=== PATIENT | female | born 1955 | race Caucasian/White ===

== ENCOUNTER 2016-08-13 15:22 | Emergency (ER) | payer OTHER ==
[~2016-08-13 15:22] MED LIST: ASPI1TAB PO; ASPI325T PO; FERR325T3 PO; LASI20TA PO; LOPR100T PO; METO100T PO; SENN8.6C PO; ZEST1TAB6 PO
[2016-08-13] MEDS ORDERED: ONDANSETRON 4MG/2ML VIAL (J2405) As Ordered ONE (16:31)
[2016-08-13] MEDS ORDERED: MORPHINE 4 MG/ML 1ML SYRINGE As Ordered ONE (16:31)
[2016-08-13] MEDS ORDERED: KETOROLAC 30 MG/ML VIAL (J1885) As Ordered ONE (16:31)
[2016-08-13 16:34] LABS: BASO % 0.2 % (0.0-1.0); EOS # 0.1 K/mm3 (0.0-0.50); EOS % 1.5 % (0.0-3.0); LARGE UNSTAINED CELL # 0.1 K/mm3 (0.0-0.4); LARGE UNSTAINED CELL % 1.7 % (0.0-4.0); LYMPH # 0.7 K/mm3 (1.5-4.5); LYMPH % 14.6 % (24.0-44.0); MEAN CORPUSCULAR HEMOGLOBIN 28.6 pg (27.0-33.0); MEAN CORPUSCULAR VOLUME 86.6 fl (80.0-96.0); MONO # 0.3 K/mm3 (0.0-0.8); MONO % 5.5 % (0.0-5.0); NEUTROPHILS # 3.7 K/mm3 (1.8-7.7); NEUTROPHILS % 76.5 % (36.0-66.0); PLATELET COUNT, AUTOMATED 176 k/mm3 (150-450); RED CELL DISTRIBUTION WIDTH 14.6 % (11.5-14.5); WHITE BLOOD COUNT 4.8 K/mm3 (4.0-10.0)
[2016-08-13 16:43] LABS: ALBUMIN 3.9 GM/DL (3.2-5.2); ALBUMIN/GLOBULIN RATIO 1.03 (1.00-1.93); ALKALINE PHOSPHATASE 89 U/L (45-117); ALT/SGPT 27 U/L (12-78); AMYLASE 44 U/L (25-115); ANION GAP 9 MEQ/L (8-16); AST/SGOT 18 U/L (15-37); BILIRUBIN,DIRECT 0.1 MG/DL (0.0-0.2); BILIRUBIN,TOTAL 0.5 MG/DL (0.2-1.0); BLOOD UREA NITROGEN 19 MG/DL (7-18); CALCIUM LEVEL 9.5 MG/DL (8.8-10.2); CARBON DIOXIDE LEVEL 30 MEQ/L (21-32); CHLORIDE LEVEL 102 MEQ/L (98-107); CREATININE FOR GFR 1.14 MG/DL (0.55-1.02); GLOMERULAR FILTRATION RATE 51.2 (>45); GLUCOSE, FASTING 104 MG/DL (80-110); POTASSIUM SERUM 3.9 MEQ/L (3.5-5.1); SODIUM LEVEL 141 MEQ/L (136-145); TOTAL PROTEIN 7.7 GM/DL (6.4-8.2)
[2016-08-13 17:11] LABS: INR 1.01
--- NOTE | 2016-08-13 17:11 | REP ---
Clinical: Upper abdominal pain. Comparison: 01/06/2015. Findings: Lung bases demonstrate mild chronic fibroatelectatic changes. Liver, spleen, pancreas, gallbladder, bilateral adrenal glands and kidneys are normal. The enteric system is without obstruction or acute inflammatory process. Normal terminal ileum and appendix identified in the right lower quadrant. Sigmoid diverticula noted without acute diverticulitis. Pelvis demonstrates normal bladder and enlarged presumed myomatous uterus. No pelvic fluid or ascites. No free air. No significant adenopathy. Abdominal aorta without aneurysm. Musculoskeletal structures without focal osseous abnormality. Impression: 1. Scattered sigmoid diverticula without acute diverticulitis. 2. Enlarged myomatous uterus similar to 01/06/2015. 3. No further acute intra-abdominal or pelvic pathology appreciated. Signed by Milan Jasso MD 08/13/2016 05:03 P
--- NOTE | 2016-08-13 18:26 | EDDOCDS ---
Physician Documentation [facility] Name: Clarissa Agrawal Age: 61 yrs Sex: Female : 1955 Arrival Date: 08/13/2016 Time: 15:22 Bed 15 Private MD: Walter Rich Disposition: 08/13/16 18:07 Discharged to Home/Self Care. Impression: Abdominal and pelvic pain. - Condition is Stable. - Discharge Instructions: Abdominal Pain, Adult. - Prescriptions for [place] 5- 325 mg Oral Tablet - take 1 tablet by ORAL route every 6 hours As needed MDD: 4 tabs; 20 tablet. Zofran 4 mg Oral Tablet - take 1 tablet by ORAL route 4 times per day As needed; 10 tablet. - Medication Reconciliation, Local Pharmacy Hours form. - Follow up: Walter Rich DO; When: 4 - 5 days; Reason: Recheck today's complaints, Continuance of care. - Problem is an acute exacerbation. - Symptoms have improved. Historical: - Allergies: no known allergies; - Home Meds: 1. metoprolol succinate 50 mg oral Tb24 1 tab once daily (Last dose: 08/13/2016 08:00) 2. lisinopril 5 mg Oral tab once daily (Last dose: 08/13/2016 08:00) 3. furosemide 20 mg Oral tab .5 tab once daily 10mg (Last dose: 08/13/2016 08:00) - PMHx: CHF; Hypertension; colon CA; - PSHx: Colon Resection; cyst removed left wrist; - Social history: Smoking status: Patient states was never smoker of tobacco. Patient/guardian denies using alcohol, street drugs, No barriers to communication noted, The patient speaks fluent Faroese, Speaks appropriately for age. - Family history: Not pertinent. - : The pt / caregiver states he / she is not on anticoagulants. Home medication list is obtained from the patient. - Exposure Risk Screening:: None identified. Vital Signs: 08/13 15:23 BP 203 / 91; Pulse 55; Resp 18; Temp 96.4(O); Pulse Ox 98% on R/A; Weight 89.81 kg / sar1 198 lbs (R); Height 5 ft. 2 in. (157.48 cm) (R); Pain 8/10; 15:57 BP 190 / 96 LA Sitting (man/reg); jjr 17:02 Pain 8/10; jjr 17:15 BP 162 / 74; Pulse 49; Resp 18; Pulse Ox 95% on R/A; Pain 7/10; jjr 18:23 BP 147 / 76; Pulse 51; Resp 20; Temp 96.7(O); Pulse Ox 97% on R/A; Pain 0/10; jc4 15:23 Body Mass Index 36.21 (89.81 kg, 157.48 cm) sar1 MDM: 15:36 ECG WITH READING ER PHYS+CARDIAG ordered. EDMS 16:18 Financial registration complete. zo 16:25 NS 0.9% 1000 ml IV at bolus once ordered. ke 16:25 Ondansetron 4 mg IVP once ordered. ke 16:25 ketorolac 30 mg IVP once ordered. ke 16:26 morphine 4 mg IVP every 30 minutes; Document pain score/vitals after each dose (Hold if ke SBP < 90mmHg) x2 ordered. 16:26 IV Saline Lock ordered. ke 16:26 Undress patient appropriately for examination ordered. ke 16:26 Amylase Ordered. EDMS 16:26 Basic Metabolic Profile Ordered. EDMS 16:26 CBC with Diff Ordered. EDMS 16:26 Cardiac Injury Profile Ordered. EDMS 16:26 Lipase Ordered. EDMS 16:26 Liver Profile Ordered. EDMS 16:26 Prothrombin Time Profile\E\INR Ordered. EDMS 16:26 Troponin Ordered. EDMS 16:26 Urinalysis Ordered. EDMS 16:26 Urine Culture Ordered. EDMS 16:27 NOTHING BY MOUTH+DIET ordered. EDMS 16:27 [facility] [place] Payment Agreement was scanned into [employer] and attached to record. zo 16:27 CT ABD & PELVIS: No Contrast Ordered. EDMS 17:58 Basic Metabolic Profile Reviewed. ke 17:58 CBC with Diff Reviewed. ke 17:58 Amylase Reviewed. ke 17:58 Cardiac Injury Profile Reviewed. ke 17:58 Lipase Reviewed. ke 17:58 Liver Profile Reviewed. ke 17:58 Prothrombin Time Profile\E\INR Reviewed. ke 17:58 Troponin Reviewed. ke 17:58 CT ABD & PELVIS: No Contrast Reviewed. ke Administered Medications: 16:41 Drug: NS 0.9% 1000 ml [sodium chloride 0.9 % intravenous solution] Route: IV; Rate: jjr bolus; Site: left antecubital; 16:41 Drug: Ondansetron 4 mg [ondansetron HCl 2 mg/mL intravenous solution (2 mL)] Route: jjr IVP; Site: left antecubital; 16:41 Drug: ketorolac 30 mg [ketorolac 30 mg/mL (1 mL) injection solution (1 mL)] Route: IVP; jjr Site: left antecubital; 16:41 Drug: morphine 4 mg [morphine 4 mg/mL intravenous cartridge (1 mL)] Route: IVP; Site: jjr left antecubital; 17:02 Follow up: Pain 03/22 Adult jjr Signatures: Dispatcher [employer] EDBandar Ray, Nayeli Alvarado Jennifer RN RN jc4 Sepideh Mathur RN RN ttb Madie Padilla RN jjr The chart was reviewed and I authenticate all verbal orders and agree with the evaluation and treatment provided.Attachments: 16:27 [facility] Payment Agreement zo MTDD
--- NOTE | 2016-08-13 18:26 | EDDOCDS ---
Nurse's Notes [facility] Name: Clarissa Agrawal Age: 61 yrs Sex: Female : 1955 Arrival Date: 08/13/2016 Time: 15:22 Bed 15 Private MD: Walter Rich Diagnosis: Abdominal and pelvic pain Presentation: 08/13 15:30 Presenting complaint: Patient states: epigastric pain started last night after dinner. ttb No improvement overnight. Denies n/v. Some SOB. Adult Sepsis Screening: The patient does not have new or worsening altered mentation. Patient's respiratory rate is less than 22. Systolic blood pressure is greater than 100. Patient has a qSOFA score of 0- Negative Sepsis Screen. Suicide/Homicide risk assessment- the patient denies having any suicidal and/or homicidal ideations and does not present with any other emotional, behavioral or mental health complaints. Status: Patient is not a financial services internship or dependent. Transition of care: patient was not received from another setting of care. 15:30 Acuity: DASIA Level 3 ttb 15:30 Method Of Arrival: Walkin/Carried/Asstd ttb Triage Assessment: 15:34 General: Appears uncomfortable, well nourished, well groomed, Behavior is anxious, ttb appropriate for age, cooperative, pleasant, restless. Pain: Location: epigastric. Pain: Pain currently is 10 out of 10 on a pain scale. HIV screening NA for this visit Offered previously. Neurological: Level of Consciousness is awake, alert. Cardiovascular: Chest pain is located in epigastric area. Respiratory: Airway is patent Respiratory effort is even, unlabored, Reports shortness of breath Denies cough. GI: Reports constipation. Derm: Skin is normal. Historical: - Allergies: no known allergies; - Home Meds: 1. metoprolol succinate 50 mg oral Tb24 1 tab once daily (Last dose: 08/13/2016 08:00) 2. lisinopril 5 mg Oral tab once daily (Last dose: 08/13/2016 08:00) 3. furosemide 20 mg Oral tab .5 tab once daily 10mg (Last dose: 08/13/2016 08:00) - PMHx: CHF; Hypertension; colon CA; - PSHx: Colon Resection; cyst removed left wrist; - Social history: Smoking status: Patient states was never smoker of tobacco. Patient/guardian denies using alcohol, street drugs, No barriers to communication noted, The patient speaks fluent French, Speaks appropriately for age. - Family history: Not pertinent. - : The pt / caregiver states he / she is not on anticoagulants. Home medication list is obtained from the patient. - Exposure Risk Screening:: None identified. Screenin:58 Screening information is obtained from the patient. Fall risk: No risks identified. jjr Assistance ADL's: requires no assistance with activities of daily living. Abuse/DV Screen: The patient / caregiver reports he/she is: not in a situation that causes fear, pain or injury. Nutritional screening: No deficits noted. Advance Directives: There is no active DNR order. home support is adequate. Assessment: 15:57 General: Appears uncomfortable, well nourished, well groomed, Behavior is appropriate jjr for age. Neurological: No deficits noted. Respiratory: No deficits noted. GI: Abdomen is non- distended Bowel sounds present X 4 quads. Abd is soft and non tender X 4 quads. Reports epigastric pain, one episode diarrhea yesterday and no bowel movement today. Derm: No deficits noted. 17:15 General: Appears in no apparent distress, epigastric pain decreased to 7/10. jjr 18:00 General: Appears in no apparent distress, ambulatory to BR gait steady, reports jjr continued relief from epigastric pain. 18:23 General: Appears in no apparent distress, Behavior is cooperative, pleasant. Pain: jc4 Denies pain. Neurological: Level of Consciousness is awake, alert, Oriented to person, place, time. Respiratory: Airway is patent Respiratory effort is even, unlabored, Respiratory pattern is regular, symmetrical. GI: Denies nausea. Derm: Skin is pink, warm & dry. Vital Signs: 15:23 BP 203 / 91; Pulse 55; Resp 18; Temp 96.4(O); Pulse Ox 98% on R/A; Weight 89.81 kg (R); sar1 Height 5 ft. 2 in. (157.48 cm) (R); Pain 8/10; 15:57 BP 190 / 96 LA Sitting (man/reg); jjr 17:02 Pain 8/10; jjr 17:15 BP 162 / 74; Pulse 49; Resp 18; Pulse Ox 95% on R/A; Pain 7/10; jjr 18:23 BP 147 / 76; Pulse 51; Resp 20; Temp 96.7(O); Pulse Ox 97% on R/A; Pain 0/10; jc4 15:23 Body Mass Index 36.21 (89.81 kg, 157.48 cm) sar1 Vitals: 15:23 Log In Time: August 13, 2016 at 15:23. sar1 ED Course: 15:23 Patient visited by Fabiola Hart, Director Multimedia. sar1 15:23 Walter Rich DO is Private Physician. sar1 15:23 Patient moved to Waiting sar1 15:25 Patient moved to Pre RCE sar1 15:31 Triage Initiated ttb 15:40 Patient moved to PD2 / 27 ms18 15:48 Patient moved to 15 ms2 15:58 Patient visited by Madie Padilla, RN. jjr 15:58 The patient / caregiver is instructed regarding the plan of care and ED course. jjr 15:59 EKG done. (by ED staff). Reviewed by Walter Rich DO. ttb 16:01 Bandar Oliver FNP is PHCP. ke 16:01 Patient visited by Bandar Oliver FNP. ke 16:01 Patient visited by Bandar Oliver FNP. ke 16:09 Inserted saline lock: 20 gauge in left antecubital area and blood collected. Labs jjr drawn. (by ED staff). Sent per order to lab. 16:20 Patient visited by Valery Pastor PCA. jlf 16:27 [facility] Payment Agreement was scanned into [employer] and attached to record. zo 16:51 Patient visited by Bandar Oliver FNP. ke 17:15 Patient visited by Madie Padilla, DIANA. jjr 17:31 CT ABD & PELVIS: No Contrast Returned. EDMS 17:47 Patient visited by Bandar Oliver FNP. ke 18:00 Urinalysis Sent. jjr 18:00 Urine Culture Sent. jjr 18:01 Patient visited by Madie Padilla, RN. jjr 18:07 Walter Rich DO is Referral Physician. ke 18:24 Discontinued lock intact, bleeding controlled, pressure dressing applied, No jc4 redness/swelling at site. No procedures done that require assistance. Administered Medications: 16:41 Drug: NS 0.9% 1000 ml [sodium chloride 0.9 % intravenous solution] Route: IV; Rate: jjr bolus; Site: left antecubital; 16:41 Drug: Ondansetron 4 mg [ondansetron HCl 2 mg/mL intravenous solution (2 mL)] Route: jjr IVP; Site: left antecubital; 16:41 Drug: ketorolac 30 mg [ketorolac 30 mg/mL (1 mL) injection solution (1 mL)] Route: IVP; jjr Site: left antecubital; 16:41 Drug: morphine 4 mg [morphine 4 mg/mL intravenous cartridge (1 mL)] Route: IVP; Site: jjr left antecubital; 17:02 Follow up: Pain 03/22 Adult jjr Order Results: Lab Order: Amylase; SPEC'M 08/13/16 16:08 Test: AMYLASE; Value: 44; Range: 25-115; Units: U/L; Status: F Lab Order: Basic Metabolic Profile; SPEC'M 08/13/16 16:08 Test: GLUCOSE, FASTING; Value: 104; Range: 80-110; Units: MG/DL; Status: F Test: BLOOD UREA NITROGEN; Value: 19; Range: 7-18; Abnormal: Above high normal; Units: MG/DL; Status: F Test: CREATININE FOR GFR; Value: 1.14; Range: 0.55-1.02; Abnormal: Above high normal; Units: MG/DL; Status: F Test: GLOMERULAR FILTRATION RATE; Value: 51.2; Range: >45; Status: F Test: SODIUM LEVEL; Value: 141; Range: 136-145; Units: MEQ/L; Status: F Test: POTASSIUM SERUM; Value: 3.9; Range: 3.5-5.1; Units: MEQ/L; Status: F Test: CHLORIDE LEVEL; Value: 102; Range: 98-107; Units: MEQ/L; Status: F Test: CARBON DIOXIDE LEVEL; Value: 30; Range: 21-32; Units: MEQ/L; Status: F Test: ANION GAP; Value: 9; Range: 8-16; Units: MEQ/L; Status: F Test: CALCIUM LEVEL; Value: 9.5; Range: 8.8-10.2; Units: MG/DL; Status: F Test Note: ; Units are mL/min/1.73 m2 Chronic Kidney Disease Staging per NKF: Stage I & II GFR >=60 Normal to Mildly Decreased Stage III GFR 30-59 Moderately Decreased Stage IV GFR 15-29 Severely Decreased Stage V GFR <15 Very Little GFR Left ESRD GFR <15 on [employer]OR Lab Order: CBC with Diff; SPEC'M 08/13/16 16:08 Test: WHITE BLOOD COUNT; Value: 4.8; Range: 4.0-10.0; Units: K/mm3; Status: F Test: RED BLOOD COUNT; Value: 5.04; Range: 4.00-5.40; Units: M/mm3; Status: F Test: HEMOGLOBIN; Value: 14.4; Range: 12.0-16.0; Units: g/dl; Status: F Test: HEMATOCRIT; Value: 43.7; Range: 36.0-47.0; Units: %; Status: F Test: MEAN CORPUSCULAR VOLUME; Value: 86.6; Range: 80.0-96.0; Units: fl; Status: F Test: MEAN CORPUSCULAR HEMOGLOBIN; Value: 28.6; Range: 27.0-33.0; Units: pg; Status: F Test: MEAN CORPUSCULAR HGB CONC; Value: 33.0; Range: 32.0-36.5; Units: g/dl; Status: F Test: RED CELL DISTRIBUTION WIDTH; Value: 14.6; Range: 11.5-14.5; Abnormal: Above high normal; Units: %; Status: F Test: PLATELET COUNT, AUTOMATED; Value: 176; Range: 150-450; Units: k/mm3; Status: F Test: NEUTROPHILS %; Value: 76.5; Range: 36.0-66.0; Abnormal: Above high normal; Units: %; Status: F Test: LYMPH %; Value: 14.6; Range: 24.0-44.0; Abnormal: Below low normal; Units: %; Status: F Test: MONO %; Value: 5.5; Range: 0.0-5.0; Abnormal: Above high normal; Units: %; Status: F Test: EOS %; Value: 1.5; Range: 0.0-3.0; Units: %; Status: F Test: BASO %; Value: 0.2; Range: 0.0-1.0; Units: %; Status: F Test: LARGE UNSTAINED CELL %; Value: 1.7; Range: 0.0-4.0; Units: %; Status: F Test: NEUTROPHILS #; Value: 3.7; Range: 1.8-7.7; Units: K/mm3; Status: F Test: LYMPH #; Value: 0.7; Range: 1.5-4.5; Abnormal: Below low normal; Units: K/mm3; Status: F Test: MONO #; Value: 0.3; Range: 0.0-0.8; Units: K/mm3; Status: F Test: EOS #; Value: 0.1; Range: 0.0-0.50; Units: K/mm3; Status: F Test: BASO #; Value: 0.0; Range: 0.0-0.2; Units: K/mm3; Status: F Test: LARGE UNSTAINED CELL #; Value: 0.1; Range: 0.0-0.4; Units: K/mm3; Status: F Lab Order: Cardiac Injury Profile; [facility]' 08/13/16 16:08 Test: CPK CREATINE PHOSPHOKINASE; Value: 62; Range: 26-192; Units: U/L; Status: F Test: CK-MB VALUE MASS; Value: 1.0; Range: 0.0-3.6; Units: NG/ML; Status: F Test: MB/CK RELATIVE INDEX; Value: 1.61; Range: < OR =4; Status: F Test Note: ; DIAGNOSIS CRITERIA MMB ng/ml Relative Index (RI) NON-AMI < or = 5 N/A [place] > 5 < or = 4 AMI > 5 > 4 Lab Order: Lipase; [facility]' 08/13/16 16:08 Test: LIPASE; Value: 123; Range: 73-393; Units: U/L; Status: F Lab Order: Liver Profile; [facility]' 08/13/16 16:08 Test: AST/SGOT; Value: 18; Range: 15-37; Units: U/L; Status: F Test: ALT/SGPT; Value: 27; Range: 12-78; Units: U/L; Status: F Test: ALKALINE PHOSPHATASE; Value: 89; Range: 45-117; Units: U/L; Status: F Test: BILIRUBIN,TOTAL; Value: 0.5; Range: 0.2-1.0; Units: MG/DL; Status: F Test: BILIRUBIN,DIRECT; Value: 0.1; Range: 0.0-0.2; Units: MG/DL; Status: F Test: TOTAL PROTEIN; Value: 7.7; Range: 6.4-8.2; Units: GM/DL; Status: F Test: ALBUMIN; Value: 3.9; Range: 3.2-5.2; Units: GM/DL; Status: F Test: ALBUMIN/GLOBULIN RATIO; Value: 1.03; Range: 1.00-1.93; Status: F Lab Order: Prothrombin Time Profile\E\INR; SPEC'M 08/13/16 16:42 Test: PROTHROMBIN TIME; Value: 13.4; Range: 12.3-14.5; Units: SECONDS; Status: F Test: INR; Value: 1.01; Status: F Test Note: ; THERAPUTIC HUMAN INR VALUES INDICATIONS NORMAL RANGES PROPHYLAXIS/TREATMENT OF: VENOUS THROMBOSIS 2.0-3.0 PULMONARY EMBOLISM 2.0-3.0 PREVENTION OF SYSTEMIC EMBOLISM FROM: TISSUE HEART VALVES 2.0-3.0 ACUTE MYOCARDIAL INFARCTION 2.0-3.0 VALVULAR HEART DISEASE 2.0-3.0 ATRIAL FIBRILLATION 2.0-3.0 MECHANICAL VALVES(HIGH RISK) 2.5-3.5 RECURRENT MYOCARDIAL INFARCTION 2.5-3.5 Lab Order: Troponin; SPEC'M 08/13/16 16:08 Test: TROPONIN I; Value: < 0.02; Range: < 0.10; Units: NG/ML; Status: F Test Note: ; Troponin I Reference Interval for Fiiiling LOCI: 99th Percentile= 0.00-0.045 ng/ml Risk Stratification: <= 0.10 ng/ml Decreased Risk for Adverse Clinical Events. 0.10-1.50 ng/ml Increased Risk for Adverse Clinical Events. Evaluation of additional criterion and/or repeat testing in 2-6 hours is suggested to rule out myocardial damage. >= 1.50 ng/ml Indicative of Myocardial Injury. Lab Order: Urinalysis; SPEC'M 08/13/16 17:58 Test: APPEARANCE, URINE; Value: CLEAR; Range: CLEAR; Status: F Test: COLOR, URINE; Value: STRAW; Range: YELLOW; Status: F Test: PH,URINE; Value: 6.0; Range: 5.0-9.0; Units: UNITS; Status: F Test: SPECIFIC GRAVITY URINE AUTO; Value: 1.009; Range: 1.002-1.035; Status: F Test: PROTEIN, URINE AUTO; Value: NEGATIVE; Range: NEGATIVE; Units: mg/dL; Status: F Test: GLUCOSE, URINE (UA) AUTO; Value: NEGATIVE; Range: NEGATIVE; Units: mg/dL; Status: F Test: KETONE, URINE AUTO; Value: NEGATIVE; Range: NEGATIVE; Units: mg/dL; Status: F Test: UROBILINOGEN, URINE AUTO; Value: 0.2; Range: 0.0-2.0; Units: mg/dL; Status: F Test: BILIRUBIN, URINE AUTO; Value: NEGATIVE; Range: NEGATIVE; Status: F Test: NITRITE, URINE AUTO; Value: NEGATIVE; Range: NEGATIVE; Status: F Test: LEUKOCYTE ESTERASE, URINE AUTO; Value: NEGATIVE; Range: NEGATIVE; Status: F Test: BLOOD, URINE BLOOD; Value: NEGATIVE; Range: NEGATIVE; Status: F Test: WBC, URINE AUTO; Value: 1; Range: 0-3; Units: /HPF; Status: F Test: RBC, URINE AUTO; Value: 1; Range: 0-3; Units: /HPF; Status: F Test: BACTERIA, URINE AUTO; Value: 1+; Range: NEGATIVE; Abnormal: Above high normal; Status: F Test: SQUAMOUS EPITHELIAL CELL UR AU; Value: 0; Range: 0-6; Units: /HPF; Status: F Test: HYALINE CAST, URINE AUTO; Value: 0; Range: 0-1; Units: /LPF; Status: F Radiology Order: CT ABD & PELVIS: No Contrast Test: CT ABD & PELVIS: No Contrast REASON FOR EXAMINATION: Abdomen Pain; Clinical: Upper abdominal pain.; ; Comparison: 01/06/2015.; ; Findings:; Lung bases demonstrate mild chronic fibroatelectatic changes.; ; Liver, spleen, pancreas, gallbladder, bilateral adrenal glands and kidneys are; normal. The enteric system is without obstruction or acute inflammatory process.; Normal terminal ileum and appendix identified in the right lower quadrant.; Sigmoid diverticula noted without acute diverticulitis. Pelvis demonstrates; normal bladder and enlarged presumed myomatous uterus. No pelvic fluid or; ascites. No free air. No significant adenopathy. Abdominal aorta without; aneurysm. Musculoskeletal structures without focal osseous abnormality.; ; Impression:; 1. Scattered sigmoid diverticula without acute diverticulitis.; 2. Enlarged myomatous uterus similar to 01/06/2015.; 3. No further acute intra-abdominal or pelvic pathology appreciated.; ; ; Signed by; Milan Jasso MD 08/13/2016 05:03 P; Outcome: 18:07 Discharge ordered by Provider. ke 18:24 Discharge Assessment: Patient awake, alert and oriented x 3. No cognitive and/or jc4 functional deficits noted. Patient verbalized understanding of disposition instructions. patient administered narcotics - no. The following High Risk Discharge criteria are identified: None. Discharged to home ambulatory. Condition: stable. Discharge instructions given to patient, Instructed on discharge instructions, follow up and referral plans. medication usage, no driving heavy equipment, no drinking with medication, Demonstrated understanding of instructions, medications, Pt was receptive of discharge instructions/ teaching. Property :Personal belongings accompany Pt. 18:25 CT Study completed. jc4 18:25 Patient left the ED. jc4 Signatures: Dispatcher [employer] EDMS Brijesh Jung RN RN ms2 Bandar Oliver, PROGRAMMER ANALYST PROGRAMMER ANALYST Nayeli Echavarria Jessica, RN RN jjr Castle, Jennifer, RN RN jc4 Sepideh Mathur RN RN ttb Forney, Jordain, LOGGING EQUIPMENT OPERATOR LOGGING EQUIPMENT OPERATOR Valentine Mccracken,DIANA RN ms18 Fabiola Hart, Director Multimedia Unit sar1 [facility]
--- NOTE | 2016-08-14 10:04 | ECGEPIP ---
Stationary ECG Study [facility] - ED Test Date: 2016-08-13 Pat Name: DARYA GOMEZ Department: Room: - Gender: F Founder And President: selin : 1955 Requested By: Patricio Miguel PA-C Order Number: [id number] Reading MD: Sarah Snyder Measurements Intervals [place] Rate: 53 P: 48 GA: 169 QRS: 18 QRSD: 104 T: 57 QT: 449 QTc: 425 Interpretive Statements SINUS BRADYCARDIA DELAYED R PROGRESSION NSTTW ABNORMALITY DECREASED RATE 07/15/14 Electronically Signed On 08-14-2016 10:03:39 EST by Sarah Snyder
--- NOTE | 2016-08-15 19:26 | EDDOCDS ---
Physician Documentation [facility] Name: Clarissa Agrawal Age: 61 yrs Sex: Female : 1955 Arrival Date: 08/13/2016 Time: 15:22 Bed 15 Private MD: Walter Rich Disposition: 08/13/16 18:07 Discharged to Home/Self Care. Impression: Abdominal and pelvic pain. - Condition is Stable. - Discharge Instructions: Abdominal Pain, Adult. - Prescriptions for Forman 5- 325 mg Oral Tablet - take 1 tablet by ORAL route every 6 hours As needed MDD: 4 tabs; 20 tablet. Zofran 4 mg Oral Tablet - take 1 tablet by ORAL route 4 times per day As needed; 10 tablet. - Medication Reconciliation, Local Pharmacy Hours form. - Follow up: Walter Rich DO; When: 4 - 5 days; Reason: Recheck today's complaints, Continuance of care. - Problem is an acute exacerbation. - Symptoms have improved. Historical: - Allergies: no known allergies; - Home Meds: 1. metoprolol succinate 50 mg oral Tb24 1 tab once daily (Last dose: 08/13/2016 08:00) 2. lisinopril 5 mg Oral tab once daily (Last dose: 08/13/2016 08:00) 3. furosemide 20 mg Oral tab .5 tab once daily 10mg (Last dose: 08/13/2016 08:00) - PMHx: CHF; Hypertension; colon CA; - PSHx: Colon Resection; cyst removed left wrist; - Social history: Smoking status: Patient states was never smoker of tobacco. Patient/guardian denies using alcohol, street drugs, No barriers to communication noted, The patient speaks fluent Syriac, Speaks appropriately for age. - Family history: Not pertinent. - : The pt / caregiver states he / she is not on anticoagulants. Home medication list is obtained from the patient. - Exposure Risk Screening:: None identified. Vital Signs: 08/13 15:23 BP 203 / 91; Pulse 55; Resp 18; Temp 96.4(O); Pulse Ox 98% on R/A; Weight 89.81 kg / sar1 198 lbs (R); Height 5 ft. 2 in. (157.48 cm) (R); Pain 8/10; 15:57 BP 190 / 96 LA Sitting (man/reg); jjr 17:02 Pain 8/10; jjr 17:15 BP 162 / 74; Pulse 49; Resp 18; Pulse Ox 95% on R/A; Pain 7/10; jjr 18:23 BP 147 / 76; Pulse 51; Resp 20; Temp 96.7(O); Pulse Ox 97% on R/A; Pain 0/10; jc4 15:23 Body Mass Index 36.21 (89.81 kg, 157.48 cm) sar1 MDM: 15:36 ECG WITH READING ER PHYS+CARDIAG ordered. EDMS 16:18 Financial registration complete. zo 16:25 NS 0.9% 1000 ml IV at bolus once ordered. ke 16:25 Ondansetron 4 mg IVP once ordered. ke 16:25 ketorolac 30 mg IVP once ordered. ke 16:26 morphine 4 mg IVP every 30 minutes; Document pain score/vitals after each dose (Hold if ke SBP < 90mmHg) x2 ordered. 16:26 IV Saline Lock ordered. ke 16:26 Undress patient appropriately for examination ordered. ke 16:26 Amylase Ordered. EDMS 16:26 Basic Metabolic Profile Ordered. EDMS 16:26 CBC with Diff Ordered. EDMS 16:26 Cardiac Injury Profile Ordered. EDMS 16:26 Lipase Ordered. EDMS 16:26 Liver Profile Ordered. EDMS 16:26 Prothrombin Time Profile\E\INR Ordered. EDMS 16:26 Troponin Ordered. EDMS 16:26 Urinalysis Ordered. EDMS 16:26 Urine Culture Ordered. EDMS 16:27 NOTHING BY MOUTH+DIET ordered. EDMS 16:27 [facility] [place] Payment Agreement was scanned into [employer] and attached to record. zo 16:27 CT ABD & PELVIS: No Contrast Ordered. EDMS 17:58 Basic Metabolic Profile Reviewed. ke 17:58 CBC with Diff Reviewed. ke 17:58 Amylase Reviewed. ke 17:58 Cardiac Injury Profile Reviewed. ke 17:58 Lipase Reviewed. ke 17:58 Liver Profile Reviewed. ke 17:58 Prothrombin Time Profile\E\INR Reviewed. ke 17:58 Troponin Reviewed. ke 17:58 CT ABD & PELVIS: No Contrast Reviewed. ke 08/14 06:33 T-Sheet-- Draft Copy was scanned into [employer] and attached to record. hs2 11:31 ECG/EKG was scanned into [employer] and attached to record. gb Administered Medications: 08/13 16:41 Drug: NS 0.9% 1000 ml [sodium chloride 0.9 % intravenous solution] Route: IV; Rate: jjr bolus; Site: left antecubital; 16:41 Drug: Ondansetron 4 mg [ondansetron HCl 2 mg/mL intravenous solution (2 mL)] Route: jjr IVP; Site: left antecubital; 16:41 Drug: ketorolac 30 mg [ketorolac 30 mg/mL (1 mL) injection solution (1 mL)] Route: IVP; jjr Site: left antecubital; 16:41 Drug: morphine 4 mg [morphine 4 mg/mL intravenous cartridge (1 mL)] Route: IVP; Site: jjr left antecubital; 17:02 Follow up: Pain 03/22 Adult jjr Signatures: Dispatcher [employer] EDMS Valorie Hernandez, Reg Reg gb Bandar Oliver, REVIEW MANAGER REVIEW MANAGER Nayeli Echavarria Jennifer, RN RN jc4 Sepideh Mathur RN RN ttb Michelle Arcos, Reg Reg hs2 Madie Padilla RN jjr The chart was reviewed and I authenticate all verbal orders and agree with the evaluation and treatment provided.Attachments: 16:27 [facility] Payment Agreement zo 08/14 06:33 T-Sheet-- Draft Copy hs2 11:31 ECG/EKG Chart Complete MTDD
--- NOTE | 2016-08-15 19:26 | EDDOCDS ---
Physician Documentation [facility] Name: Clarissa Agrawal Age: 61 yrs Sex: Female : 1955 Arrival Date: 08/13/2016 Time: 15:22 Bed 15 Private MD: Walter Rich Disposition: 08/13/16 18:07 Discharged to Home/Self Care. Impression: Abdominal and pelvic pain. - Condition is Stable. - Discharge Instructions: Abdominal Pain, Adult. - Prescriptions for Paton 5- 325 mg Oral Tablet - take 1 tablet by ORAL route every 6 hours As needed MDD: 4 tabs; 20 tablet. Zofran 4 mg Oral Tablet - take 1 tablet by ORAL route 4 times per day As needed; 10 tablet. - Medication Reconciliation, Local Pharmacy Hours form. - Follow up: Walter Rich DO; When: 4 - 5 days; Reason: Recheck today's complaints, Continuance of care. - Problem is an acute exacerbation. - Symptoms have improved. Historical: - Allergies: no known allergies; - Home Meds: 1. metoprolol succinate 50 mg oral Tb24 1 tab once daily (Last dose: 08/13/2016 08:00) 2. lisinopril 5 mg Oral tab once daily (Last dose: 08/13/2016 08:00) 3. furosemide 20 mg Oral tab .5 tab once daily 10mg (Last dose: 08/13/2016 08:00) - PMHx: CHF; Hypertension; colon CA; - PSHx: Colon Resection; cyst removed left wrist; - Social history: Smoking status: Patient states was never smoker of tobacco. Patient/guardian denies using alcohol, street drugs, No barriers to communication noted, The patient speaks fluent Malay, Speaks appropriately for age. - Family history: Not pertinent. - : The pt / caregiver states he / she is not on anticoagulants. Home medication list is obtained from the patient. - Exposure Risk Screening:: None identified. Vital Signs: 08/13 15:23 BP 203 / 91; Pulse 55; Resp 18; Temp 96.4(O); Pulse Ox 98% on R/A; Weight 89.81 kg / sar1 198 lbs (R); Height 5 ft. 2 in. (157.48 cm) (R); Pain 8/10; 15:57 BP 190 / 96 LA Sitting (man/reg); jjr 17:02 Pain 8/10; jjr 17:15 BP 162 / 74; Pulse 49; Resp 18; Pulse Ox 95% on R/A; Pain 7/10; jjr 18:23 BP 147 / 76; Pulse 51; Resp 20; Temp 96.7(O); Pulse Ox 97% on R/A; Pain 0/10; jc4 15:23 Body Mass Index 36.21 (89.81 kg, 157.48 cm) sar1 MDM: 15:36 ECG WITH READING ER PHYS+CARDIAG ordered. EDMS 16:18 Financial registration complete. zo 16:25 NS 0.9% 1000 ml IV at bolus once ordered. ke 16:25 Ondansetron 4 mg IVP once ordered. ke 16:25 ketorolac 30 mg IVP once ordered. ke 16:26 morphine 4 mg IVP every 30 minutes; Document pain score/vitals after each dose (Hold if ke SBP < 90mmHg) x2 ordered. 16:26 IV Saline Lock ordered. ke 16:26 Undress patient appropriately for examination ordered. ke 16:26 Amylase Ordered. EDMS 16:26 Basic Metabolic Profile Ordered. EDMS 16:26 CBC with Diff Ordered. EDMS 16:26 Cardiac Injury Profile Ordered. EDMS 16:26 Lipase Ordered. EDMS 16:26 Liver Profile Ordered. EDMS 16:26 Prothrombin Time Profile\E\INR Ordered. EDMS 16:26 Troponin Ordered. EDMS 16:26 Urinalysis Ordered. EDMS 16:26 Urine Culture Ordered. EDMS 16:27 NOTHING BY MOUTH+DIET ordered. EDMS 16:27 [facility] [place] Payment Agreement was scanned into [employer] and attached to record. zo 16:27 CT ABD & PELVIS: No Contrast Ordered. EDMS 17:58 Basic Metabolic Profile Reviewed. ke 17:58 CBC with Diff Reviewed. ke 17:58 Amylase Reviewed. ke 17:58 Cardiac Injury Profile Reviewed. ke 17:58 Lipase Reviewed. ke 17:58 Liver Profile Reviewed. ke 17:58 Prothrombin Time Profile\E\INR Reviewed. ke 17:58 Troponin Reviewed. ke 17:58 CT ABD & PELVIS: No Contrast Reviewed. ke 08/14 06:33 T-Sheet-- Draft Copy was scanned into [employer] and attached to record. hs2 11:31 ECG/EKG was scanned into [employer] and attached to record. gb Administered Medications: 08/13 16:41 Drug: NS 0.9% 1000 ml [sodium chloride 0.9 % intravenous solution] Route: IV; Rate: jjr bolus; Site: left antecubital; 16:41 Drug: Ondansetron 4 mg [ondansetron HCl 2 mg/mL intravenous solution (2 mL)] Route: jjr IVP; Site: left antecubital; 16:41 Drug: ketorolac 30 mg [ketorolac 30 mg/mL (1 mL) injection solution (1 mL)] Route: IVP; jjr Site: left antecubital; 16:41 Drug: morphine 4 mg [morphine 4 mg/mL intravenous cartridge (1 mL)] Route: IVP; Site: jjr left antecubital; 17:02 Follow up: Pain 03/22 Adult jjr Signatures: Dispatcher [employer] EDMS Valorie Hernandez, Reg Reg gb Bandar Oliver, ELECTROLYSIS NEEDLE OPERATOR ELECTROLYSIS NEEDLE OPERATOR Nayeli Echavarria Jennifer, RN RN jc4 Sepideh Mathur RN RN ttb Michelle Arcos, Reg Reg hs2 Madie Padilla RN jjr The chart was reviewed and I authenticate all verbal orders and agree with the evaluation and treatment provided.Attachments: 16:27 [facility] Payment Agreement zo 08/14 06:33 T-Sheet-- Draft Copy hs2 11:31 ECG/EKG Chart Complete MTDD
--- NOTE | 2016-08-15 19:26 | EDDOCDS ---
Nurse's Notes [facility] Name: Darya Gomez Age: 61 yrs Sex: Female : 1955 Arrival Date: 08/13/2016 Time: 15:22 Bed 15 Private MD: Walter Rich Diagnosis: Abdominal and pelvic pain Presentation: 08/13 15:30 Presenting complaint: Patient states: epigastric pain started last night after dinner. ttb No improvement overnight. Denies n/v. Some SOB. Adult Sepsis Screening: The patient does not have new or worsening altered mentation. Patient's respiratory rate is less than 22. Systolic blood pressure is greater than 100. Patient has a qSOFA score of 0- Negative Sepsis Screen. Suicide/Homicide risk assessment- the patient denies having any suicidal and/or homicidal ideations and does not present with any other emotional, behavioral or mental health complaints. Status: Patient is not a field services manager or dependent. Transition of care: patient was not received from another setting of care. 15:30 Acuity: DASIA Level 3 ttb 15:30 Method Of Arrival: Walkin/Carried/Asstd ttb Triage Assessment: 15:34 General: Appears uncomfortable, well nourished, well groomed, Behavior is anxious, ttb appropriate for age, cooperative, pleasant, restless. Pain: Location: epigastric. Pain: Pain currently is 10 out of 10 on a pain scale. HIV screening NA for this visit Offered previously. Neurological: Level of Consciousness is awake, alert. Cardiovascular: Chest pain is located in epigastric area. Respiratory: Airway is patent Respiratory effort is even, unlabored, Reports shortness of breath Denies cough. GI: Reports constipation. Derm: Skin is normal. Historical: - Allergies: no known allergies; - Home Meds: 1. metoprolol succinate 50 mg oral Tb24 1 tab once daily (Last dose: 08/13/2016 08:00) 2. lisinopril 5 mg Oral tab once daily (Last dose: 08/13/2016 08:00) 3. furosemide 20 mg Oral tab .5 tab once daily 10mg (Last dose: 08/13/2016 08:00) - PMHx: CHF; Hypertension; colon CA; - PSHx: Colon Resection; cyst removed left wrist; - Social history: Smoking status: Patient states was never smoker of tobacco. Patient/guardian denies using alcohol, street drugs, No barriers to communication noted, The patient speaks fluent Hebrew, Speaks appropriately for age. - Family history: Not pertinent. - : The pt / caregiver states he / she is not on anticoagulants. Home medication list is obtained from the patient. - Exposure Risk Screening:: None identified. Screenin:58 Screening information is obtained from the patient. Fall risk: No risks identified. jjr Assistance ADL's: requires no assistance with activities of daily living. Abuse/DV Screen: The patient / caregiver reports he/she is: not in a situation that causes fear, pain or injury. Nutritional screening: No deficits noted. Advance Directives: There is no active DNR order. home support is adequate. Assessment: 15:57 General: Appears uncomfortable, well nourished, well groomed, Behavior is appropriate jjr for age. Neurological: No deficits noted. Respiratory: No deficits noted. GI: Abdomen is non- distended Bowel sounds present X 4 quads. Abd is soft and non tender X 4 quads. Reports epigastric pain, one episode diarrhea yesterday and no bowel movement today. Derm: No deficits noted. 17:15 General: Appears in no apparent distress, epigastric pain decreased to 7/10. jjr 18:00 General: Appears in no apparent distress, ambulatory to BR gait steady, reports jjr continued relief from epigastric pain. 18:23 General: Appears in no apparent distress, Behavior is cooperative, pleasant. Pain: jc4 Denies pain. Neurological: Level of Consciousness is awake, alert, Oriented to person, place, time. Respiratory: Airway is patent Respiratory effort is even, unlabored, Respiratory pattern is regular, symmetrical. GI: Denies nausea. Derm: Skin is pink, warm & dry. Vital Signs: 15:23 BP 203 / 91; Pulse 55; Resp 18; Temp 96.4(O); Pulse Ox 98% on R/A; Weight 89.81 kg (R); sar1 Height 5 ft. 2 in. (157.48 cm) (R); Pain 8/10; 15:57 BP 190 / 96 LA Sitting (man/reg); jjr 17:02 Pain 8/10; jjr 17:15 BP 162 / 74; Pulse 49; Resp 18; Pulse Ox 95% on R/A; Pain 7/10; jjr 18:23 BP 147 / 76; Pulse 51; Resp 20; Temp 96.7(O); Pulse Ox 97% on R/A; Pain 0/10; jc4 15:23 Body Mass Index 36.21 (89.81 kg, 157.48 cm) sar1 Vitals: 15:23 Log In Time: August 13, 2016 at 15:23. sar1 ED Course: 15:23 Patient visited by Fabiola Hart, Machine Stone Polisher. sar1 15:23 Walter Rich DO is Private Physician. sar1 15:23 Patient moved to Waiting sar1 15:25 Patient moved to Pre RCE sar1 15:31 Triage Initiated ttb 15:40 Patient moved to PD2 / 27 ms18 15:48 Patient moved to 15 ms2 15:58 Patient visited by Madie Padilla, RN. jjr 15:58 The patient / caregiver is instructed regarding the plan of care and ED course. jjr 15:59 EKG done. (by ED staff). Reviewed by Walter Rich DO. ttb 16:01 Bandar Oliver FNP is PHCP. ke 16:01 Patient visited by Bandar Oliver FNP. ke 16:01 Patient visited by Bandar Oliver FNP. ke 16:09 Inserted saline lock: 20 gauge in left antecubital area and blood collected. Labs jjr drawn. (by ED staff). Sent per order to lab. 16:20 Patient visited by Valery Pastor PCA. jlf 16:27 [facility] Payment Agreement was scanned into [employer] and attached to record. zo 16:51 Patient visited by Bandar Oliver FNP. ke 17:15 Patient visited by Madie Padilla, DIANA. jjr 17:31 CT ABD & PELVIS: No Contrast Returned. EDMS 17:47 Patient visited by Bandar Oliver FNP. ke 18:00 Urinalysis Sent. jjr 18:00 Urine Culture Sent. jjr 18:01 Patient visited by Madie Padilla, RN. jjr 18:07 Walter Rich DO is Referral Physician. ke 18:24 Discontinued lock intact, bleeding controlled, pressure dressing applied, No jc4 redness/swelling at site. No procedures done that require assistance. 08/14 06:33 T-Sheet-- Draft Copy was scanned into [employer] and attached to record. hs2 10:20 EKG-ADULT Returned. EDMS 11:31 ECG/EKG was scanned into [employer] and attached to record. gb Administered Medications: 08/13 16:41 Drug: NS 0.9% 1000 ml [sodium chloride 0.9 % intravenous solution] Route: IV; Rate: jjr bolus; Site: left antecubital; 16:41 Drug: Ondansetron 4 mg [ondansetron HCl 2 mg/mL intravenous solution (2 mL)] Route: jjr IVP; Site: left antecubital; 16:41 Drug: ketorolac 30 mg [ketorolac 30 mg/mL (1 mL) injection solution (1 mL)] Route: IVP; jjr Site: left antecubital; 16:41 Drug: morphine 4 mg [morphine 4 mg/mL intravenous cartridge (1 mL)] Route: IVP; Site: jjr left antecubital; 17:02 Follow up: Pain 03/22 Adult jjr Order Results: Lab Order: Amylase; SPEC'M 08/13/16 16:08 Test: AMYLASE; Value: 44; Range: 25-115; Units: U/L; Status: F Lab Order: Basic Metabolic Profile; SPEC'M 08/13/16 16:08 Test: GLUCOSE, FASTING; Value: 104; Range: 80-110; Units: MG/DL; Status: F Test: BLOOD UREA NITROGEN; Value: 19; Range: 7-18; Abnormal: Above high normal; Units: MG/DL; Status: F Test: CREATININE FOR GFR; Value: 1.14; Range: 0.55-1.02; Abnormal: Above high normal; Units: MG/DL; Status: F Test: GLOMERULAR FILTRATION RATE; Value: 51.2; Range: >45; Status: F Test: SODIUM LEVEL; Value: 141; Range: 136-145; Units: MEQ/L; Status: F Test: POTASSIUM SERUM; Value: 3.9; Range: 3.5-5.1; Units: MEQ/L; Status: F Test: CHLORIDE LEVEL; Value: 102; Range: 98-107; Units: MEQ/L; Status: F Test: CARBON DIOXIDE LEVEL; Value: 30; Range: 21-32; Units: MEQ/L; Status: F Test: ANION GAP; Value: 9; Range: 8-16; Units: MEQ/L; Status: F Test: CALCIUM LEVEL; Value: 9.5; Range: 8.8-10.2; Units: MG/DL; Status: F Test Note: ; Units are mL/min/1.73 m2 Chronic Kidney Disease Staging per NKF: Stage I & II GFR >=60 Normal to Mildly Decreased Stage III GFR 30-59 Moderately Decreased Stage IV GFR 15-29 Severely Decreased Stage V GFR <15 Very Little GFR Left ESRD GFR <15 on [employer] Lab Order: CBC with Diff; SPEC'M 08/13/16 16:08 Test: WHITE BLOOD COUNT; Value: 4.8; Range: 4.0-10.0; Units: K/mm3; Status: F Test: RED BLOOD COUNT; Value: 5.04; Range: 4.00-5.40; Units: M/mm3; Status: F Test: HEMOGLOBIN; Value: 14.4; Range: 12.0-16.0; Units: g/dl; Status: F Test: HEMATOCRIT; Value: 43.7; Range: 36.0-47.0; Units: %; Status: F Test: MEAN CORPUSCULAR VOLUME; Value: 86.6; Range: 80.0-96.0; Units: fl; Status: F Test: MEAN CORPUSCULAR HEMOGLOBIN; Value: 28.6; Range: 27.0-33.0; Units: pg; Status: F Test: MEAN CORPUSCULAR HGB CONC; Value: 33.0; Range: 32.0-36.5; Units: g/dl; Status: F Test: RED CELL DISTRIBUTION WIDTH; Value: 14.6; Range: 11.5-14.5; Abnormal: Above high normal; Units: %; Status: F Test: PLATELET COUNT, AUTOMATED; Value: 176; Range: 150-450; Units: k/mm3; Status: F Test: NEUTROPHILS %; Value: 76.5; Range: 36.0-66.0; Abnormal: Above high normal; Units: %; Status: F Test: LYMPH %; Value: 14.6; Range: 24.0-44.0; Abnormal: Below low normal; Units: %; Status: F Test: MONO %; Value: 5.5; Range: 0.0-5.0; Abnormal: Above high normal; Units: %; Status: F Test: EOS %; Value: 1.5; Range: 0.0-3.0; Units: %; Status: F Test: BASO %; Value: 0.2; Range: 0.0-1.0; Units: %; Status: F Test: LARGE UNSTAINED CELL %; Value: 1.7; Range: 0.0-4.0; Units: %; Status: F Test: NEUTROPHILS #; Value: 3.7; Range: 1.8-7.7; Units: K/mm3; Status: F Test: LYMPH #; Value: 0.7; Range: 1.5-4.5; Abnormal: Below low normal; Units: K/mm3; Status: F Test: MONO #; Value: 0.3; Range: 0.0-0.8; Units: K/mm3; Status: F Test: EOS #; Value: 0.1; Range: 0.0-0.50; Units: K/mm3; Status: F Test: BASO #; Value: 0.0; Range: 0.0-0.2; Units: K/mm3; Status: F Test: LARGE UNSTAINED CELL #; Value: 0.1; Range: 0.0-0.4; Units: K/mm3; Status: F Lab Order: Cardiac Injury Profile; SPEC'M 08/13/16 16:08 Test: CPK CREATINE PHOSPHOKINASE; Value: 62; Range: 26-192; Units: U/L; Status: F Test: CK-MB VALUE MASS; Value: 1.0; Range: 0.0-3.6; Units: NG/ML; Status: F Test: MB/CK RELATIVE INDEX; Value: 1.61; Range: < OR =4; Status: F Test Note: ; DIAGNOSIS CRITERIA MMB ng/ml Relative Index (RI) NON-AMI < or = 5 N/A [place] > 5 < or = 4 AMI > 5 > 4 Lab Order: Lipase; SPEC'M 08/13/16 16:08 Test: LIPASE; Value: 123; Range: 73-393; Units: U/L; Status: F Lab Order: Liver Profile; [facility] 08/13/16 16:08 Test: AST/SGOT; Value: 18; Range: 15-37; Units: U/L; Status: F Test: ALT/SGPT; Value: 27; Range: 12-78; Units: U/L; Status: F Test: ALKALINE PHOSPHATASE; Value: 89; Range: 45-117; Units: U/L; Status: F Test: BILIRUBIN,TOTAL; Value: 0.5; Range: 0.2-1.0; Units: MG/DL; Status: F Test: BILIRUBIN,DIRECT; Value: 0.1; Range: 0.0-0.2; Units: MG/DL; Status: F Test: TOTAL PROTEIN; Value: 7.7; Range: 6.4-8.2; Units: GM/DL; Status: F Test: ALBUMIN; Value: 3.9; Range: 3.2-5.2; Units: GM/DL; Status: F Test: ALBUMIN/GLOBULIN RATIO; Value: 1.03; Range: 1.00-1.93; Status: F Lab Order: Prothrombin Time Profile\E\INR; [facility] 08/13/16 16:42 Test: PROTHROMBIN TIME; Value: 13.4; Range: 12.3-14.5; Units: SECONDS; Status: F Test: INR; Value: 1.01; Status: F Test Note: ; THERAPUTIC HUMAN INR VALUES INDICATIONS NORMAL RANGES PROPHYLAXIS/TREATMENT OF: VENOUS THROMBOSIS 2.0-3.0 PULMONARY EMBOLISM 2.0-3.0 PREVENTION OF SYSTEMIC EMBOLISM FROM: TISSUE HEART VALVES 2.0-3.0 ACUTE MYOCARDIAL INFARCTION 2.0-3.0 VALVULAR HEART DISEASE 2.0-3.0 ATRIAL FIBRILLATION 2.0-3.0 MECHANICAL VALVES(HIGH RISK) 2.5-3.5 RECURRENT MYOCARDIAL INFARCTION 2.5-3.5 Lab Order: Troponin; [facility]' 08/13/16 16:08 Test: TROPONIN I; Value: < 0.02; Range: < 0.10; Units: NG/ML; Status: F Test Note: ; Troponin I Reference Interval for [employer] LOCI: 99th Percentile= 0.00-0.045 ng/ml Risk Stratification: <= 0.10 ng/ml Decreased Risk for Adverse Clinical Events. 0.10-1.50 ng/ml Increased Risk for Adverse Clinical Events. Evaluation of additional criterion and/or repeat testing in 2-6 hours is suggested to rule out myocardial damage. >= 1.50 ng/ml Indicative of Myocardial Injury. Lab Order: Urinalysis; SPEC'M 08/13/16 17:58 Test: APPEARANCE, URINE; Value: CLEAR; Range: CLEAR; Status: F Test: COLOR, URINE; Value: STRAW; Range: YELLOW; Status: F Test: PH,URINE; Value: 6.0; Range: 5.0-9.0; Units: UNITS; Status: F Test: SPECIFIC GRAVITY URINE AUTO; Value: 1.009; Range: 1.002-1.035; Status: F Test: PROTEIN, URINE AUTO; Value: NEGATIVE; Range: NEGATIVE; Units: mg/dL; Status: F Test: GLUCOSE, URINE (UA) AUTO; Value: NEGATIVE; Range: NEGATIVE; Units: mg/dL; Status: F Test: KETONE, URINE AUTO; Value: NEGATIVE; Range: NEGATIVE; Units: mg/dL; Status: F Test: UROBILINOGEN, URINE AUTO; Value: 0.2; Range: 0.0-2.0; Units: mg/dL; Status: F Test: BILIRUBIN, URINE AUTO; Value: NEGATIVE; Range: NEGATIVE; Status: F Test: NITRITE, URINE AUTO; Value: NEGATIVE; Range: NEGATIVE; Status: F Test: LEUKOCYTE ESTERASE, URINE AUTO; Value: NEGATIVE; Range: NEGATIVE; Status: F Test: BLOOD, URINE BLOOD; Value: NEGATIVE; Range: NEGATIVE; Status: F Test: WBC, URINE AUTO; Value: 1; Range: 0-3; Units: /HPF; Status: F Test: RBC, URINE AUTO; Value: 1; Range: 0-3; Units: /HPF; Status: F Test: BACTERIA, URINE AUTO; Value: 1+; Range: NEGATIVE; Abnormal: Above high normal; Status: F Test: SQUAMOUS EPITHELIAL CELL UR AU; Value: 0; Range: 0-6; Units: /HPF; Status: F Test: HYALINE CAST, URINE AUTO; Value: 0; Range: 0-1; Units: /LPF; Status: F Lab Order: Urine Culture; SPEC'M 08/13/16 17:58 Test: URINE CULTURE; Value: URINE CULTURE RESULT NO GROWTH; Status: F Radiology Order: EKG-ADULT Test: EKG-ADULT REASON FOR EXAMINATION: epigastric pain; Stationary ECG Study; [facility] - ED; ; Test Date: 2016-08-13; Pat Name: DARYA GOMEZ Department:; Room: -; Gender: F Merchandising Intern: selin; : 1955 Requested By: Patricio Miguel PA-C; Order Number: [id number] Reading MD: Sarah Snyder; Measurements; Intervals [place]; Rate: 53 P: 48; WV: 169 QRS: 18; QRSD: 104 T: 57; QT: 449; QTc: 425; Interpretive Statements; SINUS BRADYCARDIA; DELAYED R PROGRESSION; NSTTW ABNORMALITY; DECREASED RATE 07/15/14; Electronically Signed On 08-14-2016 10:03:39 EST by Sarah Snyder; Radiology Order: CT ABD & PELVIS: No Contrast Test: CT ABD & PELVIS: No Contrast REASON FOR EXAMINATION: Abdomen Pain; Clinical: Upper abdominal pain.; ; Comparison: 01/06/2015.; ; Findings:; Lung bases demonstrate mild chronic fibroatelectatic changes.; ; Liver, spleen, pancreas, gallbladder, bilateral adrenal glands and kidneys are; normal. The enteric system is without obstruction or acute inflammatory process.; Normal terminal ileum and appendix identified in the right lower quadrant.; Sigmoid diverticula noted without acute diverticulitis. Pelvis demonstrates; normal bladder and enlarged presumed myomatous uterus. No pelvic fluid or; ascites. No free air. No significant adenopathy. Abdominal aorta without; aneurysm. Musculoskeletal structures without focal osseous abnormality.; ; Impression:; 1. Scattered sigmoid diverticula without acute diverticulitis.; 2. Enlarged myomatous uterus similar to 01/06/2015.; 3. No further acute intra-abdominal or pelvic pathology appreciated.; ; ; Signed by; Milan Jasso MD 08/13/2016 05:03 P; Outcome: 18:07 Discharge ordered by Provider. lamonte 18:24 Discharge Assessment: Patient awake, alert and oriented x 3. No cognitive and/or jc4 functional deficits noted. Patient verbalized understanding of disposition instructions. patient administered narcotics - no. The following High Risk Discharge criteria are identified: None. Discharged to home ambulatory. Condition: stable. Discharge instructions given to patient, Instructed on discharge instructions, follow up and referral plans. medication usage, no driving heavy equipment, no drinking with medication, Demonstrated understanding of instructions, medications, Pt was receptive of discharge instructions/ teaching. Property :Personal belongings accompany Pt. 18:25 CT Study completed. jc4 18:25 Patient left the ED. jc4 Signatures: Dispatcher [employer] EDMS Brijesh Jung,RN RN ms2 Valorie Hernandez, Reg Reg gb Bandar Oliver, TRAVELING INVENTORY ASSOCIATE Nayeli Blankenship Jessica, RN RN Madie Xiao RN RN jc4 Sepideh Mathur, RN RN ttValery Bran, CONDITIONER TENDER CONDITIONER TENDER Valentine Mccracken RN RN ms18 Fabiola Hart, Machine Stone Polisher Unit sar1 Michelle Arcos, Reg Reg hs2 Chart Complete MTDD
== END 2016-08-13 18:25 | disposition home or self-care (01) ==
LOC: M ED 15:22
DX: R10.9 Unspecified abdominal pain (principal); I50.9 Heart failure, unspecified; I10 Essential (primary) hypertension; Z85.038 Personal history of other malignant neoplasm of large intestine; Z90.49 Acquired absence of other specified parts of digestive tract; Z79.899 Other long term (current) drug therapy

== ENCOUNTER → 2017-01-10 | Outpatient (REF) | payer OTHER ==
[~2017-01-10] MED LIST changes: -LOPR100T PO; +LOPR1TAB7 PO
[2017-01-10 12:59] LABS: ALBUMIN 3.8 GM/DL (3.2-5.2); ALBUMIN/GLOBULIN RATIO 1.23 (1.00-1.93); BILIRUBIN,TOTAL 0.6 MG/DL (0.2-1.0); CREATININE FOR GFR 1.08 MG/DL (0.55-1.02); GLOMERULAR FILTRATION RATE 54.5 (>45); POTASSIUM SERUM 4.8 MEQ/L (3.5-5.1); TOTAL PROTEIN 6.9 GM/DL (6.4-8.2)
== END ==
LOC: M SFHCADAM 08:44
PROVIDERS: ATTEND Family Medicine
DX: Z12.39 Encounter for other screening for malignant neoplasm of breast (principal); R73.03 Prediabetes

== ENCOUNTER → 2017-09-17 | Outpatient (CLI) | payer OTHER | LOC: M WHC 10:15 | DX: Z12.31 Encounter for screening mammogram for malignant neoplasm of breast (principal); Z78.0 Asymptomatic menopausal state; Z85.038 Personal history of other malignant neoplasm of large intestine | CPT/HCPCS: 77067 ==

== ENCOUNTER → 2018-02-25 | Outpatient (REF) | payer OTHER ==
[2018-02-25 12:45] LABS: HEMATOCRIT 46.3 % (36.0-47.0); HEMOGLOBIN 15.7 g/dl (12.0-15.5); MEAN CORPUSCULAR HGB CONC 33.9 g/dl (32.0-36.5); MEAN CORPUSCULAR VOLUME 94.5 fl (80.0-96.0); RED CELL DISTRIBUTION WIDTH 13.1 % (11.5-14.5); WHITE BLOOD COUNT 3.9 10^3/uL (4.0-10.0)
[2018-02-25 12:46] LABS: BASO % 0.3 % (0.0-1.0); EOS # 0.1 10^3/uL (0.0-0.50); EOS % 2.1 % (0.0-3.0); IMMATURE GRANULOCYTE % 0.3 % (0-3.0); LYMPH # 1.3 10^3/uL (1.5-4.5); LYMPH % 32.6 % (24.0-44.0); MONO # 0.3 10^3/uL (0.0-0.8); MONO % 8.5 % (0.0-5.0); NEUTROPHILS # 2.2 10^3/uL (1.8-7.7); NEUTROPHILS % 56.2 % (36.0-66.0); PLATELET COUNT, AUTOMATED 179 10^3/uL (150-450)
[2018-02-25 13:24] LABS: ALBUMIN 3.8 GM/DL (3.2-5.2); ALBUMIN/GLOBULIN RATIO 1.12 (1.00-1.93); ALKALINE PHOSPHATASE 74 U/L (45-117); ALT/SGPT 40 U/L (12-78); ANION GAP 7 MEQ/L (8-16); AST/SGOT 17 U/L (7-37); BILIRUBIN,TOTAL 0.8 MG/DL (0.2-1.0); BLOOD UREA NITROGEN 23 MG/DL (7-18); CALCIUM LEVEL 9.5 MG/DL (8.8-10.2); CARBON DIOXIDE LEVEL 31 MEQ/L (21-32); CHLORIDE LEVEL 104 MEQ/L (98-107); GLOMERULAR FILTRATION RATE 53.2 (>45); GLUCOSE, FASTING 91 MG/DL (70-100); POTASSIUM SERUM 4.3 MEQ/L (3.5-5.1); SODIUM LEVEL 142 MEQ/L (136-145); TOTAL PROTEIN 7.2 GM/DL (6.4-8.2)
[2018-02-27 09:40] LABS: HEPATITIS C VIRUS ABY INDEX < 0.0 INDEX (<0.8)
== END ==
LOC: M LABDRWAD 12:13
DX: Z11.59 Encounter for screening for other viral diseases (principal); Z79.899 Other long term (current) drug therapy; I10 Essential (primary) hypertension

== ENCOUNTER → 2018-03-11 | Outpatient (CLI) | payer OTHER | LOC: M ADAMS 13:55 | DX: R07.89 Other chest pain (principal) | CPT/HCPCS: 71046 ==

== ENCOUNTER → 2018-06-17 | Outpatient (CLI) | payer MEDICARE | LOC: M ADAMS 15:05 | DX: K62.5 Hemorrhage of anus and rectum (principal) ==

== ENCOUNTER → 2018-06-17 | Outpatient (REF) | payer MEDICARE ==
[2018-06-17 19:46] LABS: BASO % 0.4 % (0.0-1.0); EOS # 0.1 10^3/uL (0.0-0.50); EOS % 2.2 % (0.0-3.0); HEMATOCRIT 44.9 % (36.0-47.0); HEMOGLOBIN 15.1 g/dl (12.0-15.5); IMMATURE GRANULOCYTE % 0.2 % (0-3.0); LYMPH # 1.6 10^3/uL (1.5-4.5); LYMPH % 36.1 % (24.0-44.0); MEAN CORPUSCULAR HEMOGLOBIN 31.6 pg (27.0-33.0); MEAN CORPUSCULAR HGB CONC 33.6 g/dl (32.0-36.5); MEAN CORPUSCULAR VOLUME 93.9 fl (80.0-96.0); MONO # 0.4 10^3/uL (0.0-0.8); MONO % 8.7 % (0.0-5.0); NEUTROPHILS # 2.4 10^3/uL (1.8-7.7); NEUTROPHILS % 52.4 % (36.0-66.0); PLATELET COUNT, AUTOMATED 200 10^3/uL (150-450); RED BLOOD COUNT 4.78 10^6/uL (4.00-5.40); RED CELL DISTRIBUTION WIDTH 13.4 % (11.5-14.5); WHITE BLOOD COUNT 4.5 10^3/uL (4.0-10.0)
== END ==
LOC: M SFHCADAM 14:58
DX: K62.5 Hemorrhage of anus and rectum (principal)
CPT/HCPCS: 85025

== ENCOUNTER → 2019-06-27 | Outpatient (REF) | payer MEDICARE ==
[~2019-06-27] MED LIST changes: +ASPI-1 PO; -ASPI1TAB PO; -ASPI325T PO; +ASPI81TA26 PO; +HYDR-3715 PO; -LASI20TA PO; +LASI20TA3 PO; +LISI-542 PO; -METO100T PO; +METO100T5 PO; +METO1TAB7 PO; +MULTCAP PO; +SENN1TAB10 PO; +TERRAZYME PO; +[UNRECOGNIZED DRUG - CODE] SL
[2019-06-27 19:02] LABS: BASO % 0.4 % (0.0-1.0); EOS # 0.1 10^3/uL (0.0-0.5); HEMATOCRIT 46.7 % (36.0-47.0); HEMOGLOBIN 15.7 g/dl (12.0-15.5); LYMPH # 1.5 10^3/uL (1.5-5.0); LYMPH % 32.6 % (24.0-44.0); MEAN CORPUSCULAR HGB CONC 33.6 g/dl (32.0-36.5); MEAN CORPUSCULAR VOLUME 95.3 fl (80.0-96.0); MONO # 0.4 10^3/uL (0.0-0.8); MONO % 8.7 % (0.0-5.0); NEUTROPHILS # 2.6 10^3/uL (1.5-8.5); NEUTROPHILS % 54.9 % (36.0-66.0); PLATELET COUNT, AUTOMATED 195 10^3/uL (150-450); WHITE BLOOD COUNT 4.7 10^3/uL (4.0-10.0)
[2019-06-27 19:09] LABS: ALBUMIN 3.9 GM/DL (3.2-5.2); BILIRUBIN,TOTAL 0.5 MG/DL (0.2-1.0); CALCIUM LEVEL 9.3 MG/DL (8.8-10.2); CREATININE FOR GFR 1.05 MG/DL (0.55-1.30); GLOMERULAR FILTRATION RATE 55.8 (>45); POTASSIUM SERUM 3.9 MEQ/L (3.5-5.1); TOTAL PROTEIN 7.6 GM/DL (6.4-8.2)
== END ==
LOC: M SFHCADAM 16:35
PROVIDERS: ATTEND Family Medicine
DX: Z01.810 Encounter for preprocedural cardiovascular examination (principal); I10 Essential (primary) hypertension

== ENCOUNTER 2019-07-01 09:13 | Day surgery (SDC) | payer MEDICARE ==
[~2019-07-01] VITALS: Ht 157.5 cm; Wt 92.1 kg
[~2019-07-01 09:13] MED LIST changes: +NS 1,000 ML IV ONE
[2019-07-01] MEDS ORDERED: PROPOFOL 500 MG/50 ML VIAL As Ordered ONE (10:30)
[2019-07-01] MEDS ORDERED: LIDOCAINE 2% INJ 100 MG/5 ML SDV (FOR ANES.) As Ordered ONE (10:30)
[2019-07-01 11:26] VITALS: BP 180/90
--- NOTE | 2019-07-01 12:07 | ROOR ---
Patient Name: Clarissa Agrawal Procedure Date: 07/01/2019 10:28 AM Date of : 1955 Age: 64 Room: [facility] Gender: Female Note Status: Finalized Procedure: Colonoscopy Indications: High risk colon cancer surveillance: Personal history of colon cancer, Last colonoscopy: May 2016, Patient had a low anterior resection for cancer 04/2015. Providers: Jericho Vo MD Referring MD: Ami BAÑUELOS DO Requesting Provider: Medicines: Monitored Anesthesia Care Complications: No immediate complications. Procedure: Pre-Anesthesia Assessment: - Prior to the procedure, a History and Physical was performed, and patient medications and allergies were reviewed. The patient is competent. The risks and benefits of the procedure and the sedation options and risks were discussed with the patient. All questions were answered and informed consent was obtained. Patient identification and proposed procedure were verified by the physician, the nurse and the anesthesiologist in the endoscopy suite. Mental Status Examination: alert and oriented. Airway Examination: normal oropharyngeal airway and neck mobility. CV Examination: regular rate and rhythm. Prophylactic Antibiotics: The patient does not require prophylactic antibiotics. Prior Anticoagulants: The patient has taken no previous anticoagulant or antiplatelet agents. ASA Grade Assessment: II - A patient with mild systemic disease. After reviewing the risks and benefits, the patient was deemed in satisfactory condition to undergo the procedure. The anesthesia plan was to use monitored anesthesia care (MAC). Immediately prior to administration of medications, the patient was re-assessed for adequacy to receive sedatives. The heart rate, respiratory rate, oxygen saturations, blood pressure, adequacy of pulmonary ventilation, and response to care were monitored throughout the procedure. The physical status of the patient was re-assessed after the procedure. The Colonoscope was introduced through the anus and advanced to the terminal ileum. The colonoscopy was performed without difficulty. The patient tolerated the procedure well. The quality of the bowel preparation was good. Findings: The digital rectal exam findings include palpable vinny at the tip of the finger. Pertinent negatives include normal sphincter tone. A 4 mm polyp was found in the cecum. The polyp was sessile. The polyp was removed with a jumbo cold forceps. Resection and retrieval were complete. Estimated blood loss was minimal. A 4 mm polyp was found in the mid ascending colon. The polyp was sessile. The polyp was removed with a hot snare. Resection and retrieval were complete. Estimated blood loss: none. A 5 mm polyp was found in the sigmoid colon. The polyp was sessile. The polyp was removed with a hot snare. Resection and retrieval were complete. Multiple large-mouthed diverticula were found in the sigmoid colon and descending colon. There was evidence of a prior end-to-end colo-rectal anastomosis in the mid rectum at 10 cm. This was patent and was characterized by healthy appearing mucosa and a disrupted staple line. The terminal ileum appeared normal. Impression: - Palpable vinny at the tip of the finger. found on digital rectal exam. - One 4 mm polyp in the cecum, removed with a jumbo cold forceps. Resected and retrieved. - One 4 mm polyp in the mid ascending colon, removed with a hot snare. Resected and retrieved. - One 5 mm polyp in the sigmoid colon, removed with a hot snare. Resected and retrieved. - Diverticulosis in the sigmoid colon and in the descending colon. - Patent end-to-end colo-rectal anastomosis, characterized by a disrupted staple line and healthy appearing mucosa. Recommendation: - Discharge patient to home. - Resume regular diet. - Continue present medications. - Await pathology results. - Repeat colonoscopy in 3 years for surveillance. Jericho Vo MD Jericho Vo MD 07/01/2019 12:07:09 PM Electronically signed by Jericho Vo MD Number of Addenda: 0 Note Initiated On: 07/01/2019 10:28 AM Estimated Blood Loss: Estimated blood loss was minimal.
== END 2019-07-01 12:16 | disposition home or self-care (01) ==
LOC: M OPP 09:13
PROVIDERS: ATTEND Surgery
DX: Z12.11 Encounter for screening for malignant neoplasm of colon (principal); Z85.038 Personal history of other malignant neoplasm of large intestine; D12.0 Benign neoplasm of cecum; D12.2 Benign neoplasm of ascending colon; D12.5 Benign neoplasm of sigmoid colon; K91.89 Other postprocedural complications and disorders of digestive system; Z98.0 Intestinal bypass and anastomosis status; K57.30 Diverticulosis of large intestine without perforation or abscess without bleeding; Z79.891 Long term (current) use of opiate analgesic; Z79.899 Other long term (current) drug therapy; Z92.21 Personal history of antineoplastic chemotherapy; Z92.3 Personal history of irradiation

== ENCOUNTER → 2020-03-29 | Outpatient (CLI) | payer MEDICARE ==
[~2020-03-29] MED LIST changes: +KAOP262S PO; -NS 1,000 ML IV ONE; +PEPT262S PO; +PEPT262T2 PO
--- NOTE | 2020-04-14 10:44 | REPMRS ---
Patient History The patient states she has not had a clinical breast exam in over a year. Patient is postmenopausal and has history of colorectal cancer at age 60. No known family history of cancer. Digital Woman Screen Mammo: March 29, 2020 - Exam #: [id number] Bilateral CC and MLO view(s) were taken. Technologist: Nia Topete Technologist Prior study comparison: September 17, 2017, digital woman screen mammo performed at [facility]. FINDINGS: There are scattered fibroglandular densities. The Volpara volumetric breast density category is:B. There has been no change in the appearance of the mammogram from the prior studies. There is a mild amount of scattered fibroglandular density which is fairly symmetric. There is no interval development of dominant mass, architectural distortion, or grouped microcalcification suggestive of malignancy. 3-D tomosynthesis shows no additional findings. Assessment: BI-RADS/ACR category 1 mammogram. Negative Mammogram. Recommendation Routine screening mammogram of both breasts in 1 year (for women over age 40). This patient's Lifetime Breast Cancer Risk is estimated at 6.1 %. This mammogram was interpreted with the aid of an FDA-approved computer-aided dectection system. Electronically Signed By: Guido Blum MD 04/14/20 [id number]
== END ==
LOC: M WHC 07:36
PROVIDERS: ATTEND Family Medicine
DX: Z12.31 Encounter for screening mammogram for malignant neoplasm of breast (principal); Z78.0 Asymptomatic menopausal state; Z85.038 Personal history of other malignant neoplasm of large intestine

== ENCOUNTER 2020-04-14 12:05 | Day surgery (SDC) | payer MEDICARE ==
[~2020-04-14] VITALS: Ht 160 cm; Wt 92.6 kg
[~2020-04-14 12:05] MED LIST changes: -KAOP262S PO; -PEPT262S PO; -PEPT262T2 PO
[2020-04-14 13:15] LABS: BASO % 0.2 % (0.0-1.0); EOS % 0.3 % (0.0-3.0); HEMATOCRIT 45.4 % (36.0-47.0); HEMOGLOBIN 15.6 g/dl (12.0-15.5); LYMPH # 0.6 10^3/uL (1.5-5.0); LYMPH % 6.4 % (24.0-44.0); MEAN CORPUSCULAR HEMOGLOBIN 32.5 pg (27.0-33.0); MEAN CORPUSCULAR HGB CONC 34.4 g/dl (32.0-36.5); MEAN CORPUSCULAR VOLUME 94.6 fl (80.0-96.0); MONO # 0.4 10^3/uL (0.0-0.8); MONO % 4.5 % (0.0-5.0); NEUTROPHILS # 8.5 10^3/uL (1.5-8.5); PLATELET COUNT, AUTOMATED 160 10^3/uL (150-450); WHITE BLOOD COUNT 9.7 10^3/uL (4.0-10.0)
[2020-04-14] MEDS ORDERED: MORPHINE 4 MG/ML 1ML VIAL/SYRINGE (J2270) IV ONE (13:15)
[2020-04-14] MEDS ORDERED: diazePAM 10MG/2ML SYRINGE (J3360 PER 5MG) IV ONE (13:15)
[2020-04-14] MEDS ORDERED: NS 1,000 ML IV ONE (13:15)
[2020-04-14 13:31] LABS: ALBUMIN 3.8 GM/DL (3.2-5.2); BILIRUBIN,DIRECT 0.2 MG/DL (0.0-0.2); BILIRUBIN,TOTAL 0.9 MG/DL (0.2-1.0); CALCIUM LEVEL 9.1 MG/DL (8.8-10.2); GLOMERULAR FILTRATION RATE 59.1 (>45); POTASSIUM SERUM 3.6 MEQ/L (3.5-5.1); TOTAL PROTEIN 7.3 GM/DL (6.4-8.2)
[2020-04-14] MEDS ORDERED: ISOVUE-370 76% 100ML VIAL As Ordered ONE (14:02)
[2020-04-14] MEDS ORDERED: AMPICILLIN SOD/SULBACTAM SOD 3 GM in D5W MINI-BAG PLUS 100 ML IV ONE (14:45)
--- NOTE | 2020-04-14 14:46 | REPVR ---
PROCEDURE INFORMATION: Exam: CT Abdomen And Pelvis With Contrast Exam date and time: 04/14/2020 2:22 PM Age: 64 years old Clinical indication: Abdominal pain; Additional info: Left sided abd pain TECHNIQUE: Imaging protocol: Computed tomography of the abdomen and pelvis with intravenous contrast. Radiation optimization: All CT scans at this facility use at least one of these dose optimization techniques: automated exposure control; mA and/or kV adjustment per patient size (includes targeted exams where dose is matched to clinical indication); or iterative reconstruction. Contrast material: ISOVIEW 370; Contrast volume: 100 ml; Contrast route: INTRAVENOUS (IV); COMPARISON: CT ABD PELVIS WITH CONTRAST 03/18/2018 11:05 PM FINDINGS: Lungs: Interstitial prominence and trace dependent airspace disease. Small hiatal hernia. Liver: Fatty infiltration of the liver. Gallbladder and bile ducts: Status post cholecystectomy. Pancreas: 2 mm pancreatic cyst. Borderline pancreatic ductal dilatation. Spleen: Spleen upper limits of normal in size. Adrenals: Unremarkable adrenals. Kidneys and ureters: Normal renal morphology. Mild hydronephrosis without associated urolithiasis. Stomach and bowel: Mild wall thickening in the nondistended stomach. No significant small bowel dilatation. Prominent stool and diverticula, without pericolonic inflammation. Appendix: Enlarged appendix measuring 18 mm in maximum diameter with wall thickening and subtle infiltration of periappendiceal fat, consistent with acute appendicitis in the appropriate clinical setting. Intraperitoneal space: No significant free fluid prior Vasculature: Normal caliber of the abdominal aorta. Lymph nodes: Subcentimeter lymph nodes. Bladder: Unremarkable bladder. Reproductive: Enlarged fibroid uterus. Bones/joints: Degenerative change and Schmorl's nodes. IMPRESSION: 1. Enlarged appendix measuring 18 mm in maximum diameter with wall thickening and subtle infiltration of periappendiceal fat, consistent with appendicitis. 2. Enlarged fibroid uterus. 3. Additional findings as described above. THIS REPORT CONTAINS FINDINGS THAT MAY BE CRITICAL TO PATIENT CARE. The findings were verbally communicated via telephone conference with MAGDALENO HUFFMAN at 2:45 PM EDT on 04/14/2020. The findings were acknowledged and understood. Electronically signed by: Ace Mcpherson On 04/14/2020 14:45:38 PM
[2020-04-14] MEDS ORDERED: PEPT262T2 PO (16:28)
[2020-04-14] MEDS ORDERED: KAOP262S PO (16:29)
[2020-04-14] MEDS ORDERED: PEPT262S PO (16:33)
[2020-04-14] MEDS ORDERED: ONDANSETRON 4MG/2ML VIAL As Ordered ONE ×2 (18:04→19:27)
[2020-04-14] MEDS ORDERED: fentaNYL 100 MCG/2 ML INJECTION (J3010) As Ordered ONE ×2 (18:04→18:46)
[2020-04-14] MEDS ORDERED: propofoL 200 MG/20 ML VIAL As Ordered ONE (18:04)
[2020-04-14] MEDS ORDERED: LIDOCAINE 2% 100MG/5ML SDV (FOR ANES.) As Ordered ONE (18:04)
[2020-04-14] MEDS ORDERED: ROCURONIUM BROMIDE 50 MG/5 ML VIAL As Ordered ONE (18:04)
[2020-04-14] MEDS ORDERED: MIDAZOLAM INJ 2MG/2ML VIAL (J2250 PER 1MG) As Ordered ONE (18:04)
[2020-04-14] MEDS ORDERED: BUPIVACAINE/EPIN 0.25% 30 ML VIAL As Ordered ONE (18:04)
[2020-04-14] MEDS ORDERED: dexameTHASONE 4 MG/ML 1ML VIAL (J1100 PER 1MG) As Ordered ONE (18:04)
[2020-04-14] MEDS ORDERED: UNASYN 1.5 GM VIAL As Ordered ONE (18:40)
[2020-04-14] MEDS ORDERED: SUGAMMADEX SODIUM 500 MG/5 ML VIAL (BRIDION) As Ordered ONE (18:43)
[2020-04-14] MEDS ORDERED: KETOROLAC 60MG 2ML VIAL As Ordered ONE (18:48)
[2020-04-14] MEDS ORDERED: hydrALAZINE 20MG/ML 1ML VIAL (J0360 PER 20MG) As Ordered ONE (18:54)
[2020-04-14] MEDS ORDERED: ACETAMINOPHEN TAB 650MG DOSE (2X325MG) PO PRN (19:30)
[2020-04-14] MEDS ORDERED: PILL CUTTER 1 EACH XX PRN (19:30)
[2020-04-14] MEDS ORDERED: NORCO, ANEXSIA 5/325MG TABLET (HYDROcodone/ACETAMINOPHEN) PO PRN (19:30)
[2020-04-14] MEDS ORDERED: MORPHINE 2 MG/ML 1ML VIAL (J2270) IV PRN ×2 (19:30)
[2020-04-14] MEDS ORDERED: MEPERIDINE INJ 25 MG/ML VIAL (J2175) IV PRN (19:45)
[2020-04-14] MEDS ORDERED: METOCLOPRAMIDE INJ 10MG/2ML VIAL (J2765 PER 1) IV PRN (19:45)
[2020-04-14] MEDS ORDERED: LR 1,000 ML IV SCH (19:45)
[2020-04-14] MEDS ORDERED: ONDANSETRON 4MG/2ML VIAL IV PRN (19:45)
[2020-04-14] MEDS ORDERED: oxyCODONE 5MG TAB PO PRN (19:45)
[2020-04-14] MEDS ORDERED: fentaNYL 100 MCG/2 ML INJECTION (J3010) IV PRN (19:45)
[2020-04-14 20:55] VITALS: BP 151/74
[2020-04-14] MEDS: NS 1,000 ML IV SCH (21:21)
[2020-04-14 21:25] VITALS: BP 141/72
[2020-04-14 21:55] VITALS: BP 131/69
[2020-04-14 22:55] VITALS: BP 111/62
[2020-04-14 23:55] VITALS: BP 109/58
[2020-04-15 00:55] VITALS: BP 104/57
[2020-04-15] MEDS: AMPICILLIN SOD/SULBACTAM SOD 3 GM in D5W MINI-BAG PLUS 100 ML IV SCH ×2 (01:37→07:31)
[2020-04-15] MEDS: KETOROLAC 30 MG/ML 1ML VIAL IV SCH ×2 (01:37→07:30)
[2020-04-15 01:55] VITALS: BP 110/62
[2020-04-15] MEDS: NS 1,000 ML IV SCH (05:25)
[2020-04-15 08:00] VITALS: BP 124/62
[2020-04-15] MEDS ORDERED: METOPROLOL SUCC (TopROL XL) 50MG **XL** TAB PO SCH (09:00)
[2020-04-15] MEDS ORDERED: FUROSEMIDE 10MG PER 1/2 TABLET PO SCH (09:00)
[2020-04-15] MEDS ORDERED: lisinopriL 5 MG TAB PO SCH (09:00)
[2020-04-15] MEDS ORDERED: FUROSEMIDE 20 MG TAB PO SCH (09:00)
[2020-04-15 09:37] VITALS: BP 124/60
--- NOTE | 2020-05-06 15:01 | RO ---
DATE OF OPERATION: 04/14/2020 PREOPERATIVE DIAGNOSIS: Acute appendicitis. POSTOPERATIVE DIAGNOSIS: Acute appendicitis. PROCEDURE: Laparoscopic appendectomy. SURGEON: Dr. Haider Killian ANESTHESIA: General endotracheal anesthesia. ESTIMATED BLOOD LOSS: Minimal. FLUIDS: Crystalloid. BRIEF PROCEDURE SUMMARY: Patient was brought to the operating room and was given general anesthesia. After adequate anesthesia and preoperative antibiotics were given, the patient was prepped and draped in the usual sterile fashion. Next, a supraumbilical incision was made with a skin knife. Blunt dissection was carried down to fascia and Veress needle placed into the abdominal cavity, insufflated to 15 mm pressure. Dilating 12 mm trocar was placed at this time, and under direct visualization suprapubic left lower quadrant 5 mm trocars were placed. The appendix could be seen going into the pelvis. There was some turbid fluid in the pelvis, but there was no evidence of perforation. The appendix was mobilized out of the pelvis bluntly, and the mesentery of the appendix was taken with harmonic scalpel down to the base of the appendix. This was somewhat a fluted base, and thus the base was transected with a WERO stapler, placed in an Endo Catch bag, and brought out through the umbilicus. Right lower quadrant was copiously irrigated until clear. All trocars were removed under direct visualization. Zero Vicryl was used to close the fascia at the umbilicus, and all incisions were closed with 4-0 Vicryl. Steri-Strips and a dry sterile dressing were applied. The patient was awakened, extubated, and brought to the recovery room awake, alert, hemodynamically stable. Sponge and needle counts correct times two. MTDD
== END 2020-04-15 11:30 | disposition home or self-care (01) ==
LOC: M ED 12:05 → M SDC 12:06 → M PED 20:55 → M SDC 04-15 11:30
PROVIDERS: ATTEND Surgery
DX: K35.890 Other acute appendicitis without perforation or gangrene (principal); I10 Essential (primary) hypertension; M10.9 Gout, unspecified; R55 Syncope and collapse; Z85.038 Personal history of other malignant neoplasm of large intestine; K59.00 Constipation, unspecified; Z79.899 Other long term (current) drug therapy
CPT/HCPCS: 44970; 74177; 80048; 80076; 81001; 83690; 85025; 88304; 96361; 96365; 96375; 96376; 99284; J0360; J1100; J1885; J2250; J2405; J3010; J3360; Q9967; U0002

== ENCOUNTER → 2021-10-20 | Outpatient (CLI) | payer MEDICARE ==
[~2021-10-20] MED LIST changes: +KAOP262S PO; -LISI-542 PO; +LISI5TAB11 PO; +PEPT262S PO; +PEPT262T2 PO
== END ==
LOC: M WHC 13:00
PROVIDERS: ATTEND Family Medicine
DX: Z12.31 Encounter for screening mammogram for malignant neoplasm of breast (principal); M81.0 Age-related osteoporosis without current pathological fracture

== ENCOUNTER → 2021-12-19 | Outpatient (REF) | payer MEDICARE | LOC: M SFHCADAM 11:15 | PROVIDERS: ATTEND Family Medicine | DX: R82.90 Unspecified abnormal findings in urine (principal); M1A.0790 Idiopathic chronic gout, unspecified ankle and foot, without tophus (tophi) ==

== ENCOUNTER → 2022-08-28 | Outpatient (CLI) | payer MEDICARE ==
[~2022-08-28] MED LIST changes: +ALLO300T2; +FURO20TA2; +TARTCAP PO
== END ==
LOC: M LABSMTC 10:20
PROVIDERS: ATTEND Anesthesiology
DX: Z01.812 Encounter for preprocedural laboratory examination (principal); Z11.52 Encounter for screening for COVID-19

== ENCOUNTER 2022-08-31 10:55 | Day surgery (SDC) | payer MEDICARE ==
[~2022-08-31] VITALS: Ht 160 cm; Wt 91.1 kg
[~2022-08-31 10:55] MED LIST changes: +NS 1,000 ML IV ONE
[2022-08-31] MEDS ORDERED: propofoL 500 MG/50 ML VIAL As Ordered ONE (12:13)
[2022-08-31] MEDS ORDERED: LIDOCAINE 2% 100MG/5ML SDV (FOR ANES.) As Ordered ONE (12:13)
[2022-08-31 13:00] VITALS: BP 194/95
== END 2022-08-31 13:02 | disposition home or self-care (01) ==
LOC: M OPP 10:55
PROVIDERS: ATTEND Surgery
DX: Z12.11 Encounter for screening for malignant neoplasm of colon (principal); Z85.038 Personal history of other malignant neoplasm of large intestine; Z86.010 Personal history of colon polyps; D12.6 Benign neoplasm of colon, unspecified; K57.30 Diverticulosis of large intestine without perforation or abscess without bleeding; Z79.899 Other long term (current) drug therapy; I50.9 Heart failure, unspecified; I11.0 Hypertensive heart disease with heart failure; Z92.21 Personal history of antineoplastic chemotherapy; Z92.3 Personal history of irradiation

== ENCOUNTER 2023-05-15 07:11 | Inpatient (IN) | payer MEDICARE ==
[~2023-05-15] VITALS: Ht 160 cm; Wt 90.7 kg
[~2023-05-15 07:11] MED LIST changes: -ALLO300T2; +ALLO300T2 PO; -NS 1,000 ML IV ONE
[2023-05-15] MEDS ORDERED: OMEP-173 PO (07:36)
[2023-05-15 11:54] LABS: BASO % 0.5 % (0.0-1.0); EOS % 0.3 % (0.0-3.0); HEMATOCRIT 46.6 % (36.0-47.0); HEMOGLOBIN 15.3 g/dl (12.0-15.5); LYMPH # 1.3 10^3/uL (1.5-5.0); LYMPH % 19.4 % (24.0-44.0); MEAN CORPUSCULAR HEMOGLOBIN 31.9 pg (27.0-33.0); MEAN CORPUSCULAR HGB CONC 32.8 g/dl (32.0-36.5); MEAN CORPUSCULAR VOLUME 97.1 fl (80.0-96.0); MONO # 0.3 10^3/uL (0.0-0.8); MONO % 5.1 % (2.0-8.0); NEUTROPHILS % 74.5 % (36.0-66.0); PLATELET COUNT, AUTOMATED 239 10^3/uL (150-450); WHITE BLOOD COUNT 6.7 10^3/uL (4.0-10.0)
[2023-05-15] MEDS ORDERED: METOPROLOL 5 MG/5 ML VIAL IV STA (11:55)
[2023-05-15] MEDS ORDERED: METOPROLOL TART 50 MG TAB PO SCH (12:00)
[2023-05-15] MEDS ORDERED: METOPROLOL SUCC *XL* 25MG TAB (TopROL *XL*) PO ONE (12:05)
[2023-05-15 12:09] LABS: INR 1.04; PROTHROMBIN TIME 13.3 SECONDS (12.5-14.5)
[2023-05-15 12:10] LABS: PARTIAL THROMBOPLASTIN TIME 26.1 SECONDS (24.8-34.2)
[2023-05-15] MEDS ORDERED: MED REC IN PROGRESS XX SCH ×2 (12:10→12:25)
[2023-05-15] MEDS: METOPROLOL 5 MG/5 ML VIAL IV SCH ×3 (12:14→12:33)
[2023-05-15] MEDS ORDERED: HOME MED LIST COMPLETE! XX SCH (12:30)
[2023-05-15 12:35] LABS: ALBUMIN 3.8 G/DL (3.2-5.2); ALKALINE PHOSPHATASE 95 U/L (46-116); ALT/SGPT 57 U/L (7.0-40); AST/SGOT 78 U/L (<34); BILIRUBIN,DIRECT 0.2 MG/DL (<0.4); BILIRUBIN,TOTAL 0.7 MG/DL (0.3-1.2); BLOOD UREA NITROGEN 19 MG/DL (9-23); CALCIUM LEVEL 9.2 MG/DL (8.3-10.6); CARBON DIOXIDE LEVEL 30 MMOL/L (20-31); CHLORIDE LEVEL 104 MMOL/L (98-107); CPK CREATINE PHOSPHOKINASE 75 U/L (34-145); FREE T4 1.15 NG/DL (0.89-1.76); GLOMERULAR FILTRATION RATE > 60.0 (>39); GLUCOSE, FASTING 122 MG/DL (74-106); MB/CK RELATIVE INDEX 1.33 (< OR =4); POTASSIUM SERUM 5.6 MMOL/L (3.5-5.1); SODIUM LEVEL 140 MMOL/L (136-145); THYROID STIMULATING HORMONE 2.643 uIU/ML (0.55-4.78); TOTAL PROTEIN 7.2 G/DL (5.7-8.2)
[2023-05-15] MEDS ORDERED: APIXABAN 5 MG TAB (ELIQUIS) PO ONE (13:00)
[2023-05-15] MEDS ORDERED: FUROSEMIDE 40MG/4ML VIAL IV ONE (13:30)
[2023-05-15] MEDS ORDERED: FUROSEMIDE 40 MG TAB PO ONE (14:00)
[2023-05-15] MEDS ORDERED: METOPROLOL TART 50 MG TAB PO ONE (14:00)
[2023-05-15] MEDS ORDERED: FUROSEMIDE 20MG/2ML VIAL IV ONE (14:30)
[2023-05-15 16:00] VITALS: BP 182/110; TEMP 98.2; O2SAT 96
[2023-05-15 16:05] VITALS: BP 148/90
[2023-05-15] MEDS: METOPROLOL TART 50 MG TAB PO SCH ×2 (17:11→22:50)
[2023-05-15 18:24] LABS: ABG BASE EXCESS 2.8 (-2.0-2.0); ABG HCO3 26.8 MMOL/L (22.0-26.0); ABG O2 SATURATION 93.3 % (95.0-99.0); ABG PARTIAL PRESSURE CO2 39.3 mmHg (35.0-45.0); ABG PARTIAL PRESSURE O2 63.7 mmHg (75.0-100.0); ABG STANDARD HCO3 26.8 MMOL/L. (22.0-26.0); ABG pH (ARTERIAL) 7.452 UNITS (7.350-7.450)
[2023-05-15] MEDS ORDERED: DIGOXIN INJ 0.5 MG/2 ML AMP IV ONE (18:25)
[2023-05-15 19:21] VITALS: BP 152/96; TEMP 97.8; O2SAT 96
[2023-05-15] MEDS: SENOKOT S TAB PO SCH (19:40)
[2023-05-15] MEDS: OMEPRAZOLE 20MG CAP PO SCH (21:37)
[2023-05-15] MEDS: APIXABAN 5 MG TAB (ELIQUIS) PO SCH (21:37)
[2023-05-15] MEDS: allopurinoL 300 MG TAB PO SCH (21:37)
[2023-05-15] MEDS: FUROSEMIDE 40MG/4ML VIAL IV SCH (21:38)
[2023-05-15 22:49] VITALS: BP 130/96
[2023-05-15 23:41] VITALS: BP 129/78; TEMP 97.9; O2SAT 94
[2023-05-16] VITALS (7 sets, daily range): BP systolic 112–158; BP diastolic 74–99; TEMP 97.6–98.6; O2SAT 93–96
[2023-05-16 05:45] LABS: BASO % 0.4 % (0.0-1.0); EOS % 0.6 % (0.0-3.0); HEMATOCRIT 44.3 % (36.0-47.0); HEMOGLOBIN 14.9 g/dl (12.0-15.5); LYMPH # 2.1 10^3/uL (1.5-5.0); LYMPH % 30.2 % (24.0-44.0); MEAN CORPUSCULAR HGB CONC 33.6 g/dl (32.0-36.5); MEAN CORPUSCULAR VOLUME 95.3 fl (80.0-96.0); MONO # 0.5 10^3/uL (0.0-0.8); MONO % 6.8 % (2.0-8.0); NEUTROPHILS # 4.3 10^3/uL (1.5-8.5); NEUTROPHILS % 61.9 % (36.0-66.0); PLATELET COUNT, AUTOMATED 210 10^3/uL (150-450); RED BLOOD COUNT 4.65 10^6/uL (4.00-5.40)
[2023-05-16 06:06] LABS: BLOOD UREA NITROGEN 21 MG/DL (9-23); CALCIUM LEVEL 8.8 MG/DL (8.3-10.6); CARBON DIOXIDE LEVEL 32 MMOL/L (20-31); CHLORIDE LEVEL 103 MMOL/L (98-107); CREATININE FOR GFR 0.96 MG/DL (0.55-1.30); GLOMERULAR FILTRATION RATE > 60.0 (>39); GLUCOSE, FASTING 95 MG/DL (74-106); POTASSIUM SERUM 3.7 MMOL/L (3.5-5.1); SODIUM LEVEL 142 MMOL/L (136-145)
[2023-05-16] MEDS: FUROSEMIDE 40MG/4ML VIAL IV SCH (06:11)
[2023-05-16] MEDS: METOPROLOL TART 50 MG TAB PO SCH ×3 (06:12→17:18)
[2023-05-16] MEDS ORDERED: DIGOXIN INJ 0.5 MG/2 ML AMP IV ONE (07:10)
[2023-05-16] MEDS: APIXABAN 5 MG TAB (ELIQUIS) PO SCH ×2 (08:11→20:57)
[2023-05-16] MEDS: OMEPRAZOLE 20MG CAP PO SCH ×2 (08:11→20:57)
[2023-05-16] MEDS: SENOKOT S TAB PO SCH (08:12)
[2023-05-16] MEDS ORDERED: lisinopriL 5 MG TAB PO SCH (09:00)
[2023-05-16] MEDS ORDERED: ELIQ5TAB PO (16:03)
[2023-05-16] MEDS ORDERED: FUROSEMIDE 40MG/4ML VIAL IV SCH (17:00)
[2023-05-16] MEDS: allopurinoL 300 MG TAB PO SCH (20:57)
[2023-05-17] MEDS: METOPROLOL TART 50 MG TAB PO SCH ×3 (00:01→12:34)
[2023-05-17 04:01] VITALS: BP 150/93; TEMP 97.5; O2SAT 95
[2023-05-17 05:40] LABS: BASO % 0.3 % (0.0-1.0); EOS # 0.1 10^3/uL (0.0-0.5); EOS % 1.6 % (0.0-3.0); HEMATOCRIT 47.4 % (36.0-47.0); LYMPH # 1.9 10^3/uL (1.5-5.0); LYMPH % 28.2 % (24.0-44.0); MEAN CORPUSCULAR HEMOGLOBIN 32.4 pg (27.0-33.0); MEAN CORPUSCULAR HGB CONC 33.8 g/dl (32.0-36.5); MONO # 0.6 10^3/uL (0.0-0.8); MONO % 8.6 % (2.0-8.0); NEUTROPHILS # 4.1 10^3/uL (1.5-8.5); PLATELET COUNT, AUTOMATED 208 10^3/uL (150-450); RED BLOOD COUNT 4.94 10^6/uL (4.00-5.40); WHITE BLOOD COUNT 6.7 10^3/uL (4.0-10.0)
[2023-05-17 06:04] LABS: CALCIUM LEVEL 9.1 MG/DL (8.3-10.6); CREATININE FOR GFR 1.14 MG/DL (0.55-1.30); GLOMERULAR FILTRATION RATE 50.2 (>39); POTASSIUM SERUM 3.5 MMOL/L (3.5-5.1)
[2023-05-17 06:17] VITALS: BP 154/92
[2023-05-17 08:00] VITALS: BP 144/101; TEMP 97; O2SAT 93
[2023-05-17] MEDS: OMEPRAZOLE 20MG CAP PO SCH (08:31)
[2023-05-17] MEDS: APIXABAN 5 MG TAB (ELIQUIS) PO SCH (08:31)
[2023-05-17] MEDS ORDERED: FUROSEMIDE 40 MG TAB PO SCH (09:00)
[2023-05-17] MEDS ORDERED: LASI20TA3 PO (10:31)
[2023-05-17] MEDS ORDERED: LISI10TA22 PO (10:31)
[2023-05-17] MEDS ORDERED: METO100T5 PO (10:31)
[2023-05-17 12:00] VITALS: BP 140/83; TEMP 97; O2SAT 94
[2023-05-17 12:34] VITALS: BP 140/83
== END 2023-05-17 12:48 | disposition home health service (06) | DRG 291 ==
LOC: M ED 07:11 → M ED INP 13:18 → UNDOADMIN 13:18 → M PCU 15:50
PROVIDERS: ADMIT Internal Medicine Nephrology; ATTEND Internal Medicine Nephrology
PROC: B246ZZZ Ultrasonography of Right and Left Heart (ICD-10-PCS; principal; 2023-05-15)
DX: I11.0 Hypertensive heart disease with heart failure (principal); J81.0 Acute pulmonary edema; I50.21 Acute systolic (congestive) heart failure; K86.2 Cyst of pancreas; I48.91 Unspecified atrial fibrillation; Z85.038 Personal history of other malignant neoplasm of large intestine; I27.20 Pulmonary hypertension, unspecified; Z92.21 Personal history of antineoplastic chemotherapy; R73.03 Prediabetes; K76.0 Fatty (change of) liver, not elsewhere classified; K21.9 Gastro-esophageal reflux disease without esophagitis; Z90.49 Acquired absence of other specified parts of digestive tract; I16.0 Hypertensive urgency; E79.0 Hyperuricemia without signs of inflammatory arthritis and tophaceous disease; Z79.899 Other long term (current) drug therapy; Z20.822 Contact with and (suspected) exposure to COVID-19

== ENCOUNTER → 2023-06-26 | Outpatient (CLI) | payer MEDICARE ==
[~2023-06-26] MED LIST changes: +ELIQ5TAB PO; +LISI10TA22 PO; +OMEP-173 PO
== END ==
LOC: M ADAMS 10:35
PROVIDERS: ATTEND Family Medicine
DX: M75.32 Calcific tendinitis of left shoulder (principal)

== ENCOUNTER → 2023-09-26 | Outpatient (REF) | payer MEDICARE ==
[2023-09-26 14:29] LABS: BASO % 0.3 % (0.0-1.0); EOS # 0.1 10^3/uL (0.0-0.5); EOS % 2.3 % (0.0-3.0); HEMOGLOBIN 15.8 g/dl (12.0-15.5); LYMPH # 1.9 10^3/uL (1.5-5.0); LYMPH % 31.5 % (24.0-44.0); MEAN CORPUSCULAR HEMOGLOBIN 31.7 pg (27.0-33.0); MEAN CORPUSCULAR HGB CONC 32.9 g/dl (32.0-36.5); MEAN CORPUSCULAR VOLUME 96.4 fl (80.0-96.0); MONO # 0.5 10^3/uL (0.0-0.8); MONO % 8.4 % (2.0-8.0); NEUTROPHILS # 3.4 10^3/uL (1.5-8.5); NEUTROPHILS % 57.2 % (36.0-66.0); PLATELET COUNT, AUTOMATED 207 10^3/uL (150-450); RED BLOOD COUNT 4.98 10^6/uL (4.00-5.40)
[2023-09-26 15:05] LABS: ALBUMIN 3.9 G/DL (3.2-5.2); ALKALINE PHOSPHATASE 109 U/L (46-116); ALT/SGPT 32 U/L (7.0-40); AST/SGOT 21 U/L (<34); BILIRUBIN,TOTAL 0.9 MG/DL (0.3-1.2); BLOOD UREA NITROGEN 24 MG/DL (9-23); CALCIUM LEVEL 9.4 MG/DL (8.3-10.6); CARBON DIOXIDE LEVEL 34 MMOL/L (20-31); CHLORIDE LEVEL 103 MMOL/L (98-107); CHOLESTEROL LEVEL 193 MG/DL (<200); CHOLESTEROL RISK RATIO 3.82 (<5); CREATININE FOR GFR 0.95 MG/DL (0.55-1.30); GLOMERULAR FILTRATION RATE > 60.0 (>39); GLUCOSE, FASTING 89 MG/DL (74-106); HDL CHOLESTEROL 50.5 MG/DL (>40); LDL CHOLESTEROL 107.1 MG/DL (<100); NON-HDL-C 142.5 MG/DL; POTASSIUM SERUM 4.5 MMOL/L (3.5-5.1); SODIUM LEVEL 140 MMOL/L (136-145); TOTAL PROTEIN 7.3 G/DL (5.7-8.2); TRIGLYCERIDES LEVEL 177 MG/DL (<150)
[2023-09-26 15:47] LABS: THYROID STIMULATING HORMONE 4.293 uIU/ML (0.55-4.78)
== END ==
LOC: M SFHCADAM 11:10
PROVIDERS: ATTEND Family Medicine
DX: Z00.00 Encounter for general adult medical examination without abnormal findings (principal); I48.91 Unspecified atrial fibrillation; Z79.899 Other long term (current) drug therapy

== ENCOUNTER → 2024-06-13 | Outpatient (REF) | payer MEDICARE | LOC: M LAB REF 17:15 | PROVIDERS: ATTEND Nurse Practitioner Family | DX: K22.70 Barrett's esophagus without dysplasia (principal); R13.10 Dysphagia, unspecified; Z85.038 Personal history of other malignant neoplasm of large intestine; K44.9 Diaphragmatic hernia without obstruction or gangrene; R19.7 Diarrhea, unspecified ==

== ENCOUNTER 2024-07-08 15:26 | Emergency (ER) | payer MEDICARE ==
[~2024-07-08] VITALS: Ht 160 cm; Wt 94.7 kg
[2024-07-08 15:34] VITALS: TEMP 97.4
[2024-07-08 16:49] LABS: BASO % 0.4 % (0.0-1.0); EOS % 0.1 % (0.0-3.0); HEMATOCRIT 47.4 % (36.0-47.0); HEMOGLOBIN 16.2 g/dl (12.0-15.5); LYMPH % 14.8 % (24.0-44.0); MEAN CORPUSCULAR HEMOGLOBIN 32.2 pg (27.0-33.0); MEAN CORPUSCULAR HGB CONC 34.2 g/dl (32.0-36.5); MEAN CORPUSCULAR VOLUME 94.2 fl (80.0-96.0); MONO # 0.2 10^3/uL (0.0-0.8); MONO % 2.8 % (2.0-8.0); NEUTROPHILS # 5.6 10^3/uL (1.5-8.5); NEUTROPHILS % 81.6 % (36.0-66.0); PLATELET COUNT, AUTOMATED 211 10^3/uL (150-450); RED BLOOD COUNT 5.03 10^6/uL (4.00-5.40); WHITE BLOOD COUNT 6.8 10^3/uL (4.0-10.0)
[2024-07-08 17:22] LABS: ALBUMIN 4.1 G/DL (3.2-5.2); BILIRUBIN,DIRECT 0.3 MG/DL (<0.4); TOTAL PROTEIN 7.9 G/DL (5.7-8.2)
[2024-07-08] MEDS ORDERED: ISOVUE-370 76% 100ML VIAL As Ordered ONE (18:02)
[2024-07-08 18:29] LABS: INR 1.28; PARTIAL THROMBOPLASTIN TIME 27.3 SECONDS (24.8-34.2); PROTHROMBIN TIME 16.3 SECONDS (12.5-14.5)
[2024-07-08] MEDS: KETOROLAC 30 MG/ML 1ML VIAL IV ONE (18:51)
[2024-07-08] MEDS: ONDANSETRON 4MG 2ML VIAL IV ONE (18:51)
[2024-07-08] MEDS ORDERED: CEFD300C PO (19:40)
[2024-07-08 19:51] VITALS: BP 153/95; O2SAT 96
== END 2024-07-08 20:04 | disposition home or self-care (01) ==
LOC: M ED 15:26
DX: D25.9 Leiomyoma of uterus, unspecified (principal); K57.30 Diverticulosis of large intestine without perforation or abscess without bleeding; I10 Essential (primary) hypertension; I48.91 Unspecified atrial fibrillation; Z85.038 Personal history of other malignant neoplasm of large intestine; I50.9 Heart failure, unspecified; Z90.49 Acquired absence of other specified parts of digestive tract; Z79.899 Other long term (current) drug therapy
CPT/HCPCS: 71275; 74177; 80047; 80076; 81001; 83690; 85025; 85610; 85730; 87088; 87186; 93005; 96374; 96375; 99284; J1885; J2405; Q9967

== ENCOUNTER → 2024-07-15 | Outpatient (REF) | payer MEDICARE ==
[~2024-07-15] MED LIST changes: +CEFD300C PO
[2024-07-15 17:46] LABS: APPEARANCE, URINE HAZY (CLEAR); BACTERIA, URINE AUTO NEGATIVE (NEGATIVE); BILIRUBIN, URINE AUTO NEGATIVE (NEGATIVE); BLOOD, URINE BLOOD NEGATIVE (NEGATIVE); COLOR, URINE AMBER (YELLOW); GLUCOSE, URINE (UA) AUTO NEGATIVE (NEGATIVE); KETONE, URINE AUTO NEGATIVE (NEGATIVE); LEUKOCYTE ESTERASE, URINE AUTO 1+ (NEGATIVE); MUCUS, URINE SMALL (NEGATIVE); NITRITE, URINE AUTO NEGATIVE (NEGATIVE); PROTEIN, URINE AUTO NEGATIVE (NEGATIVE); RBC, URINE AUTO 0 /HPF (0-3); SPECIFIC GRAVITY URINE AUTO 1.012 (1.002-1.035); SQUAMOUS EPITHELIAL CELL UR AU 2 /HPF (0-6); UROBILINOGEN, URINE AUTO 0.2 mg/dL (0.0-2.0); WBC, URINE AUTO 4 /HPF (0-3)
== END ==
LOC: M SFHCADAM 14:49
PROVIDERS: ATTEND Family Medicine
DX: N39.0 Urinary tract infection, site not specified (principal)

== ENCOUNTER → 2024-07-15 | Outpatient (CLI) | payer MEDICARE | LOC: M ADAMS 14:49 | PROVIDERS: ATTEND Family Medicine | DX: M54.50 Low back pain, unspecified (principal) ==

== ENCOUNTER → 2024-12-08 | Outpatient (REF) | payer MEDICARE ==
[2024-12-08 13:41] LABS: BASO % 0.5 % (0.0-1.0); EOS # 0.2 10^3/uL (0.0-0.5); EOS % 3.3 % (0.0-3.0); HEMOGLOBIN 15.2 g/dl (12.0-15.5); LYMPH # 1.6 10^3/uL (1.5-5.0); LYMPH % 29.7 % (24.0-44.0); MEAN CORPUSCULAR HEMOGLOBIN 31.4 pg (27.0-33.0); MONO # 0.4 10^3/uL (0.0-0.8); MONO % 7.7 % (2.0-8.0); NEUTROPHILS # 3.2 10^3/uL (1.5-8.5); NEUTROPHILS % 58.4 % (36.0-66.0); PLATELET COUNT, AUTOMATED 192 10^3/uL (150-450); RED BLOOD COUNT 4.84 10^6/uL (4.00-5.40); WHITE BLOOD COUNT 5.5 10^3/uL (4.0-10.0)
== END ==
LOC: M SFHCADAM 10:42
PROVIDERS: ATTEND Family Medicine
DX: R06.09 Other forms of dyspnea (principal)